=== PATIENT | male | born 1975 | race Caucasian/White ===

== ENCOUNTER → 2020-05-03 14:35 | Outpatient (CLI) | payer SELFPAY ==
--- NOTE | 2020-05-03 14:45 | CT_ITS ---
STUDY: CARDIAC CALCIUM SCORING - CT CHEST REASON FOR EXAM: Male, 44 years old. Screening. RADIATION DOSAGE (If Supplied By Facility): CTDIvol = ( 12.19 ) mGy, DLP = ( 219.42 ) mGycm TECHNIQUE: Axial non-enhanced images were acquired through the heart for the sole purpose of measuring coronary artery calcium. Individualized dose optimization techniques were used for this CT. COMPARISON: None. FINDINGS: This portion of the report is being generated solely for the evaluation of noncoronary artery structures which have been assessed on plain another report. The visualized lungs are well expanded and free of infiltrate or mass. The heart is normal in size. There is evidence of coronary artery calcification. Normal pericardium. Normal mediastinum and christiana. Normal visualized pulmonary arteries and thoracic aorta. Minimal degenerative changes of the thoracic spine. Normal visualized upper abdomen. CT/Limited Chest CT w/CCTA IMPRESSION: No visualized anatomic abnormality. Electronically Signed: Hakeem Poole DO at 22:36 EDT Tel [phone], Service support ,
[2020-05-03 14:48] VITALS: BP 165/102; PULSE 75; RESP 14; O2SAT 96; BMI 35.3
[2020-05-03 15:07] VITALS: BP 154/98; PULSE 80
[2020-05-03] MEDS: Metoprolol Tartrate 5 MG/5 ML Vial IV ×2 (15:07→15:13)
[2020-05-03 15:13] VITALS: BP 141/93; PULSE 77
[2020-05-03 15:31] VITALS: BP 152/95; PULSE 73; RESP 16; O2SAT 97
--- NOTE | 2020-05-03 19:03 | CA.SCORE ---
Calcium Scoring Date of Study:: 05/03/20 Coronary Calcium Scoring: High-resolution Computed Tomographic imaging of the chest was performed on 05/03/2020 with particular attention paid to the coronary arteries. Images from the examination were analyzed for the presence and extent of coronary artery calcification , using coronary calcium quantification software. The patient tolerated the procedure well and there were no complications. The results of the coronary calcification analysis are provided below. - Findings Left Main (LM): 0 Left Anterior Descending (LAD): 0 Left Circumflex (LCX): 0 Right Coronary Artery (RCA): 0 Total Agatston Score: 0 Calcium Scoring Interpretation: 0 No identifiable atherosclerotic plaque. Very low cardiovascular disease risk. <5% chance of presence coronary artery disease A Negative Examination 1-10 Minimal Plaque burden. Significant coronary artery disease very unlikely. 11-100 Mild plaque burden. Likely mild or minimal coronary atherosclerosis. 101-400 Moderate plaque burden Moderate non-obstructive coronary artery disease highly likely. Over 400 Extensive plaque burden. High likelihood of at least one significant coronary stenosis (>50% diameter) Calcium Score: 0 Negative Examination - Continue cardiovascular evaluation and care as deemed appropriate.
== END ==
PROVIDERS: PCP Internal Medicine; Referring Provider Internal Medicine; Visit Provider Internal Medicine
DX: E78.2 Mixed hyperlipidemia (principal); Z82.49 Family history of ischemic heart disease and other diseases of the circulatory system
CPT/HCPCS: 75571; 76380; 96374; A4216

== ENCOUNTER 2020-07-18 13:40 | Inpatient (IN) | payer OTHER, SELFPAY ==
[2020-05-03 14:48] VITALS: BMI 35.3
[2020-07-18 13:41] VITALS: BP 141/86; PULSE 105; RESP 13; TEMP 37.4; O2SAT 99; BMI 36.9
--- NOTE | 2020-07-18 14:05 | ED.DCSUM_ITS ---
History of Present Illness Chief Complaint: Abd Pain Informant: Patient Onset: Yesterday Context: Gradual Onset Current Severity: Moderate Maximum Severity: Moderate Narrative: Patient presents secondary to upper abdominal pain. He states yesterday he was having low back pain. Around 9 PM last evening he developed pain between the umbilicus and the epigastrium. He continues to have pain to this area that slightly radiates around to his right side. He denies fever, nausea, or vomiting. He denies diarrhea. He denies any prior abdominal surgeries. Past history is significant for what he believes is a hypercoagulable state. He states he stopped taking his Coumadin a couple months ago and it is still up in the air as to whether he needs to be taking it or not. - Past Medical History (1) Vertebral artery dissection Status: Resolved (2) Dyslipidemia Status: Chronic (3) HTN (hypertension) Status: Chronic (4) Hypercoagulable state Status: Chronic Past Medical History - Allergies and Home Meds Allergies/Adverse Reactions: Allergies hydrocodone bitartrate [From Vicodin] Adverse Reaction (Verified 07/18/20 13:41) Other Primary Care Physician: Karen Hernandez DO [Primary Care Provider] - Prior records reviewed: Yes Surgical History: total knee arthroplasty Lives: With Family Smoking Status: Never smoker - Family History Maternal Family History: Reports: - - Migraine headaches Review of Systems General: Denies: Chills, Fever Eyes: Denies: Visual changes - bilaterally ENT: Denies: Bilateral ear pain Cardiovascular: Denies: Chest pain Respiratory: Denies: Dyspnea, Cough Gastrointestinal: Reports: Abdominal pain. Denies: Nausea, Vomiting, Diarrhea Genitourinary: Denies: Dysuria Musculoskeletal: Denies: Swelling, Extremity Pain Skin: Denies: Rash Hematologic: Denies: Easy bruising, Easy bleeding Allergy: Denies: Uticaria Physical Exam Vital Signs/Narrative: Vital Signs Temp Pulse Resp BP Pulse Ox 07/18/20 13:41 99.4 F H 105 H 13 141/86 H 99 Inital Vital Signs reviewed: Yes General: Well nourished, Well developed Head: Normocephalic ENT: Moist mucous membranes Neck: Supple Cardiovascular: Regular rate, Regular rhythm Respiratory: No distress, CTA bilaterally Abdomen: Soft, Normal bowel sounds, Tender - Upper abdominal tenderness to palpation.. Negative for: Guarding, Rebound tenderness Back: Nontender Extremities: Nontender Skin: Normal color, No rash Neurological: Alert, Oriented x3 Psychological: Normal affect Diagnostic/Tx/Re-eval Impressions Abdomen Ultrasound 07/18/20 15:23 IMPRESSION: Thick-walled gallbladder with multiple polyps. No shadowing stones. If concern for gallbladder disease HIDA scan with CK stimulation recommended for further evaluation. Nonvisualization of pancreas which may be better assessed with CAT scan if clinically warranted Electronically Signed: Jemal Landers MD at 16:08 EDT , Service support , 07/18/20 15:23 US Abd [Abdomen Limited] [US] Stat Laboratory Results 07/18/20 07/18/20 07/18/20 14:26 14:26 14:26 WBC 9.2 RBC 4.91 Hgb 13.8 Hct 41.9 MCV 85.3 MCH 28.1 MCHC 32.9 RDW Std Deviation 40.1 RDW Coeff of Foster 12.8 Plt Count 194 MPV 10.8 Immature Gran % (Auto) 0.400 Neut % (Auto) 74.5 H Lymph % (Auto) 16.8 L [place] % (Auto) 7.8 Eos % (Auto) 0.3 Baso % (Auto) 0.2 Absolute Neuts (auto) 6.9 Absolute Lymphs (auto) 1.55 Nucleated RBC % 0 Sodium 139 Potassium 3.5 Chloride 108 H Carbon Dioxide 29.0 Anion Gap 2 L BUN 15 Creatinine 0.78 Estim Creat Clear Calc 148.38 Est GFR (MDRD) Af Amer 139 Est GFR (MDRD) Non-Af 115 BUN/Creatinine Ratio 19.3 Glucose 105 Lactic Acid 1.1 Calcium 9.7 Total Bilirubin 0.30 Direct Bilirubin 0.08 AST 10 L ALT 22 Alkaline Phosphatase 68 Total Protein 7.2 Albumin 3.9 Globulin 3.3 Lipase 3813 H - Medical Decision Making Patient did initially declined pain medication but then did agree when pain worsened. He was given 4 mg of morphine along with Zofran. Lab work is consistent with pancreatitis. Ultrasound of the right upper quadrant reveals a thick-walled gallbladder with some polyps but no evidence of gallstones and normal biliary duct. Patient be discussed with hospitalist regarding admission. ED Disposition - Plan for ED Patient: Disposition: Acute Care [facility] Diagnosis: Pancreatitis Referrals: Karen Hernandez DO [Primary Care Provider] -
[2020-07-18 14:40] LABS: Absolute Lymphocyte Count 1.55 X10^3/uL (0.83-4.51); Absolute Neutrophil Count 6.9 X10^3/uL (2.0-7.7); Basophil# 0.02 X10^3/uL; Basophil% 0.2 % (0-1); Eosinophil# 0.03 X10^3/uL; Eosinophils% 0.3 % (0-5); Hematocrit 41.9 % (40-54); Hemoglobin 13.8 g/dL (13.0-16.5); Lymphocyte # 1.55 X10^3/ul (4.0); Lymphocyte % 16.8 % (19-41); Mean Corp Hgb Conc 32.9 g/dL (32-36); Mean Corpuscular Hgb 28.1 pg (27.0-32.0); Mean Corpuscular Volume 85.3 fL (80-94); Mean Platelet Vol. 10.8 fl (6.2-12.0); Monocyte# 0.72 X10^3/uL; Monocyte% 7.8 % (0-10); NRBC Flagged by Analyzer 0 % (0-5); Neutrophil # 6.85 X10^3/uL (2.7-7.7); Neutrophil % 74.5 % (47-70); Platelet Count 194 K/mm3 (150-450); RBC Distribution Width CV 12.8 % (11.6-14.6); RBC Distribution Width SD 40.1 fl (35.1-43.9); Red Blood Count 4.91 M/mm3 (4.6-6.2); White Blood Count 9.2 K/mm3 (4.4-11.0)
[2020-07-18 15:01] LABS: AST(SGOT) 10 U/L (15-37); Alanine Aminotransfer ALT/SGPT 22 U/L (16-61); Albumin, Serum 3.9 g/dL (3.2-5.0); Alkaline Phosphatase 68 U/L (45-117); Anion Gap 2 (5-15); BUN 15 mg/dL (7-18); BUN/Creat Ratio 19.3 RATIO (10-20); Bilirubin, Direct 0.08 mg/dL (0.00-0.30); Calcium,Total 9.7 mg/dL (8.5-10.1); Chloride 108 mmol/L (98-107); Creatinine, Serum 0.78 mg/dL (0.70-1.30); EST Glomerular Filtration Rate 115 mL/min (>60); Est Glom Filt Rate - Afr Amer 139 mL/min (>60); Estimated Creatinine Clearance 148.38 ml/min; Globulin 3.3 g/dL (2.2-4.2); Glucose 105 mg/dL (74-106); Lipase 3813 U/L (73-393); Potassium 3.5 mmol/L (3.5-5.1); Protein, Total 7.2 g/dL (6.4-8.2); Sodium Level 139 mmol/L (136-145)
[2020-07-18 15:10] LABS: Lactic Acid 1.1 mmol/L (0.4-1.9)
[2020-07-18] MEDS: 0.9% Normal Saline 1,000 ML 150 ML IV (15:10)
--- NOTE | 2020-07-18 15:23 | US_ITS ---
STUDY: ABDOMINAL ULTRASOUND - RIGHT UPPER QUADRANT REASON FOR VISIT: Male, 44 years old ABD PAIN EPIGASTRIC TECHNIQUE: Ultrasound evaluation of the right upper quadrant was performed with real-time and static cohn-scale imaging. TECHNICAL QUALITY: Adequate. COMPARISON: None. FINDINGS: Liver: The liver measures 24.85 cm. There is diffusely increased echogenicity of the liver. The bile ducts are within normal limits. There is hepatic color flow. The direction of portal flow is hepatopetal. There is no demonstrated mass lesion. Gallbladder: Normal distended gallbladder. The gallbladder wall measures 3 mm. There is a negative sonographic Whaley''s sign. There is no pericholecystic fluid. No shadowing stones are observed. There are small polyps. Common Bile Duct (C.B.D.): The common bile duct measures 5 mm. Pancreas: Pancreas is not well visualized due to bowel gas producing artifact.. Right Kidney: Normal size of the right kidney. The right kidney measures 12.5 x 6.3 x 6.7 cm. Normal renal cortex. The right cortex measures 2.1 cm. There is no demonstrated renal mass or cyst. There is no right hydronephrosis. US/Abdomen Limited IMPRESSION: Thick-walled gallbladder with multiple polyps. No shadowing stones. If concern for gallbladder disease HIDA scan with CK stimulation recommended for further evaluation. Nonvisualization of pancreas which may be better assessed with CAT scan if clinically warranted Electronically Signed: Jemal Landers MD at 16:08 EDT , Service support ,
[2020-07-18] MEDS: Ondansetron 4 MG/2 ML Vial IV (15:51)
[2020-07-18] MEDS: 0.9% Normal Saline 1,000 ML 999 ML IV (15:52)
[2020-07-18] MEDS: Morphine 4 MG/ML Syringe IV (15:52)
[2020-07-18 15:57] VITALS: BP 103/64; PULSE 89; RESP 16; O2SAT 97
[2020-07-18 16:31] VITALS: BMI 37.0
[2020-07-18 16:48] VITALS: BP 114/75; PULSE 81; RESP 16; TEMP 36.8; O2SAT 98
--- NOTE | 2020-07-18 16:51 | CT_ITS ---
STUDY: CT ABDOMEN AND PELVIS WITHOUT CONTRAST REASON FOR EXAM: Male, 44 years old. PANCREATITIS? RADIATION DOSAGE (If Supplied By Facility): CTDIvol = ( 20.40 ) mGy, DLP = ( 1446.07 ) mGycm TECHNIQUE: Transaxial images were obtained from the dome of the diaphragm to the symphysis pubis without oral contrast, and without intravenous contrast. Sagittal and coronal images were reconstructed. Individualized dose optimization techniques were used for this CT. COMPARISON: None. FINDINGS: Mild interstitial thickening in both lower lobes.. The visualized portions of the heart are within normal limits. Normal liver. Normal gallbladder and extrahepatic biliary system. Normal spleen. Pancreas is normal size however there is peripancreatic edema of the mid to distal pancreas with a small amount of free fluid in the left anterior pararenal space consistent with acute pancreatitis. Normal bilateral adrenal glands. No evidence for renal obstruction. There is a tiny cyst in the right kidney. There is a solid cortical nodule in left kidney measuring approximately 2 x 2.7 cm. Possibility of neoplasm not excluded. Fluid-filled stomach with diffuse distention of both large and small bowel consistent with ileus. No evidence for small bowel obstruction The appendix is visualized and appears normal. Normal abdominal aorta. Normal inferior vena cava. Normal retroperitoneum. Incompletely distended thick-walled bladder. Normal abdominal wall. Lumbar spine demonstrates mild spondylosis. CT/Abdomen/Pelvis W IV Cont ONLY IMPRESSION: Findings consistent with acute pancreatitis localized to the body and tail of the pancreas with small amount of free fluid in the left anterior pararenal space. Incidental finding of small solid cortical nodule left kidney uncertain etiology. Cannot exclude neoplasm. Repeat study with contrast or MRI would be useful for further assessment Tiny right renal cyst Electronically Signed: Jemal Landers MD at 17:41 EDT , Service support ,
--- NOTE | 2020-07-18 17:01 | NURSING ---
MED SURG MANOLO PANCREATITIS
[2020-07-18 17:07] VITALS: BMI 39.4
--- NOTE | 2020-07-18 17:17 | PCM.HP.STD ---
History of Present Illness Date of Admission: 07/18/20 The patient is a 44 year old M with PMH of vertebral dissection, hypercoagulable state, HTN, Depression, Hypertriglyceridemia and seasonal allergies presented to the ED on 07/18/2020 c/o abdominal pain that radiates to his back, nausea and vomiting. He states that yesterday he and his family were at the [facility] and he had back pain all day. They then went to dinner and he had wings and by evening he was having back pain and abdominal pain. His sx worsening through the night and he began to have N/V. He denies constipation, diarrhea, melena, hematochezia or hematemesis. His VSS. His CBC is unremarkable. LFTs are WNL but lipase was 3813. An US of the RUQ was done and shows a thickened GB wall with multiple polyps but no stones and no bile duct dilation. Pt does admit that he has chronically elevated triglycerides but is unaware of his last level. the last one that is documented in the electronic medical record here is 367 but that was from 2014. The case was discussed with Dr. Wan and he recommended an IV contrasted CT to assess for pancreatic mass. That study is pending at this time. He denies any regular EtOH intake and states that he maybe drinks 20 beers per year and his confirms this. Past Medical History Past Medical History (Chronic Problems): Chronic Problems HTN (hypertension) (Chronic) Dyslipidemia (Chronic) Hypercoagulable state (Chronic) Allergies hydrocodone bitartrate [From Vicodin] Adverse Reaction (Verified 07/18/20 13:41) Other Home Medications: Ambulatory Orders Medication Instructions Recorded Buspirone HCl 15 mg PO BID 07/18/20 Citalopram [Celexa] 20 mg PO DAILY 07/18/20 Hydrochlorothiazide [Hctz] 25 mg PO DAILY 07/18/20 Lisinopril [Zestril] 20 mg PO BID 07/18/20 Loratadine [Claritin] 10 mg PO DAILY 07/18/20 Surgical History: total knee arthroplasty Lives: With Family Smoking Status: Former smoker Tobacco Use: Cigarettes Alcohol: Rare Drugs: None - *Family History Maternal History Items: - - Migraine headaches Review of Systems Constitutional: Reports: Anorexia, Malaise. Denies: Chills, Fever, Night Sweats, Weakness, Weight Change, Fatigue Eyes: Denies: Blurred vision, Cataracts, Conjunctivae Inflammation, Double vision, Drainage, Eyelid Inflammation, Pain, Redness, Vision Change HEENT: Denies: Difficulty Hearing, Difficulty Swallowing, Dysphasia, Ear Pain, Eye Pain, Hard of Hearing, Head Aches, Hearing Changes, Nasal bleeding, Nasal Congestion, Post Nasal Drip, Sinus Congestion, Sinus Drainage, Sore Throat, Visual Changes Cardiovascular: Denies: Chest Pain, Claudication, Chest Pressure, Chest Tightness, Edema, Heaviness, Light Headedness, Orthopnea, Palpitations, Paroxysmal Noc. Dyspnea, Syncope Respiratory: Denies: Cough, Hemoptysis, Pleuritic Pain, Shortness of Breath, Shortness of breath at rest, Shortness of breath upon exertion, Sputum production, Wheezing Gastrointestinal: Reports: Abdominal Pain, Nausea, Vomiting. Denies: Constipation, Diarrhea, Dyspepsia, Hematemesis, Hematochezia, Melena Genitourinary: Denies: Dysuria, Frequency, Hematuria, Hesitancy, Incontinence, Nocturia, Retention, Urgency Musculoskeletal: Reports: Back Pain. Denies: Joint Pain, Joint stiffness, Joint swelling, Joint Tenderness, Neck Pain Skin: Denies: Dryness, Jaundice, Lesions, Pruritis, Rash, Skin Changes, Wounds Neurological: Denies: Balance problems, Blurred vision, Double vision, Change in Speech, Slurred speech, Confusion, Difficulty swallowing, Focal weakness, Headaches, Incoordination, Numbness, Tingling, Tremor, Seizures Psychiatric: Denies: Anxiety, Depression Endocrine: Denies: Change in Body Habitus, Heat/ Cold Intolerance, Polydipsia Hematologic/ Lymphatic: Denies: Adenopathy, Anemia, Easy Bruising, Easy Bleeding, Petechiae, Purpura VTE Information - Inpt Only VTE Present on Admission: No VTE Pharm Prophylaxis ordered?: Yes Patient Problems: Active and Suspected Problems Pancreatitis (Acute) - Physical Exam Vitals/I&O's: Vital Signs Temp Pulse Resp BP Pulse Ox 98.2 F 81 16 114/75 98 07/18/20 16:48 07/18/20 16:48 07/18/20 16:48 07/18/20 16:48 07/18/20 16:48 Oxygen Delivery Method Room Air Weight: 137.8 kg Body Mass Index (BMI) 36.9 General: Alert, Oriented x3, Cooperative, No apparent distress, Well developed, Well nourished, - - middle aged WM lying in bed, non-toxic but appears that the does not feel well HEENT: Atraumatic, PERRLA, EOMI, Normocephalic, EAC Clear Oral: No Gingival or Mucosal Lesions/ Ulcerations, Dry Mucosa, - - Mallampati 2 Neck: Supple, No JVD, Negative Carotid Bruits, Negative Hepatojugular Reflux, No Nodes, Trachea Midline, Thyroid Normal Size and Texture Lungs: Clear to auscultation, Normal air movement, No rhonchi, No wheeze, No rales Cardiovascular: Regular rate, Regular Rhythm, Normal S1, Normal S2, No murmurs, No Ectopic Activity, No rub noted, No Gallop Abdomen: Bowel Sounds Present, Soft, Non-Distended, No Hepato-splenomegaly, Obese, Tender - epigastrum and LUQ Extremities: No clubbing, No cyanosis, No edema, Capillary Refill Less than 3 Seconds, No Calf Tenderness, Peripheral Pulses Normal Skin: No rashes, No breakdown Musculoskeletal: No Tenderness to Palpation of Joints or Extremities, No Muscle Wasting Lymphatic: No Cervical, Supraclavicular, or Inguinal Adenopathy Neurological: Cranial nerves II-XII grossly intact, Deep Tendon Reflexes 2+/4 and Symmetrical, Neuro grossly intact, Motor Exam 5/5 strength throughout, Muscle tone normal, Sensory exam intact to light touch and pain, Coordination normal Psych/Mental Status: Normal Affect, Appropriate, Alert and oriented to time, place, person, mood and affect Laboratory Results 07/18/20 14:26: WBC 9.2, RBC 4.91, Hgb 13.8, Hct 41.9, MCV 85.3, MCH 28.1, MCHC 32.9, RDW Std Deviation 40.1, RDW Coeff of Foster 12.8, Plt Count 194, MPV 10.8, Immature Gran % (Auto) 0.400, Neut % (Auto) 74.5 H, Lymph % (Auto) 16.8 L, [place] % (Auto) 7.8, Eos % (Auto) 0.3, Baso % (Auto) 0.2, Absolute Neuts (auto) 6.9, Absolute Lymphs (auto) 1.55, Nucleated RBC % 0 07/18/20 14:26: Sodium 139, Potassium 3.5, Chloride 108 H, Carbon Dioxide 29.0, Anion Gap 2 L, BUN 15, Creatinine 0.78, Estim Creat Clear Calc 148.38, Est GFR (MDRD) Af Amer 139, Est GFR (MDRD) Non-Af 115, BUN/Creatinine Ratio 19.3, Glucose 105, Calcium 9.7, Total Bilirubin 0.30, Direct Bilirubin 0.08, AST 10 L, ALT 22, Alkaline Phosphatase 68, Total Protein 7.2, Albumin 3.9, Globulin 3.3, Lipase 3813 H 07/18/20 14:26: Lactic Acid 1.1 Current Medications Sodium Chloride () 1,000 mls @ 150 mls/hr IV .[id number] [facility] Last Admin: 07/18/20 15:10 Dose: 150 mls/hr Documented by: Sodium Chloride () 10 - 40 ml IV UD PRN PRN Reason: SALINE FLUSH Assessment/Plan All Active Problems Pancreatitis (Acute) Vertebral artery dissection (Resolved) Headache (Acute) Acute Pancreatitis -NPO except for few ice chips -CT A/P pending -LR at 200 cc/hr -dilaudid for pain -prn bowel regimen -check trigs -consult GS Hypercoagulable state -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 but unable to tell me which ones -is supposed to be on OAC (coumadin) but has not been taking this and doesn't remember his last dose -no recent clots -check INR today -hold OAC -sub q heparin for now and if no OR in am would start therapeutic Lovenox and coumadin HTN -hold PO BP meds -10 mg scheduled Hydralazine q 6 hrs -monitor Hypertriglyceridemia -check trigs -if > 1000 may need plasmapheresis and would need to be transferred to OSH -last documented in EMR in 2014 and was 367 -takes no meds for this H/O vert aa dissection -no current issues -per was 2/2 chiropractor Depression/Anxiety -hold celexa and buspar DVT prophylaxis -see above Code Status Full Inpatient E&M: 78911 Init Hosp L3
[2020-07-18] MEDS: fentaNYL 100 MCG/2 ML Ampul 50 MCG IV (17:29)
[2020-07-18 17:33] VITALS: BP 120/71; PULSE 78; RESP 95
[2020-07-18] MEDS: Lactated Ringers 1,000 ML 200 ML IV (19:02)
[2020-07-18] MEDS: HYDROmorphone 1 MG/ML Syringe IV ×2 (19:07→23:28)
[2020-07-18 19:18] VITALS: RESP 12; O2SAT 88
[2020-07-18 19:45] LABS: Triglycerides 279 mg/dL
[2020-07-18 19:48] LABS: International Normalized Ratio 1.1; Prothrombin Time (Protime)PT. 13.4 SECONDS (11.7-14.9)
[2020-07-18 20:03] VITALS: BP 155/95; PULSE 81; RESP 16; TEMP 37; O2SAT 97
[2020-07-18] MEDS: Ketorolac 15 MG/ML Vial IV (21:16)
[2020-07-18] MEDS: 0.9% Saline Lock 10 ML Syringe IV ×2 (21:17→23:27)
[2020-07-18] MEDS: Heparin Injection (Vial) 5,000 UNIT/ML VIAL 5000 UNIT SC (21:25)
[2020-07-19] VITALS (15 sets, daily range): BP systolic 98–159; BP diastolic 58–104; PULSE 90–118; RESP 16–20; TEMP 36.1–38.8; O2SAT 93–99
[2020-07-19] MEDS: Lactated Ringers 1,000 ML 200 ML IV ×3 (00:27→09:54)
[2020-07-19] MEDS: 0.9% Saline Lock 10 ML Syringe IV ×7 (02:24→22:36)
[2020-07-19] MEDS: Ondansetron 4 MG/2 ML Vial IV (02:26)
[2020-07-19] MEDS: HYDROmorphone 1 MG/ML Syringe IV ×8 (03:25→22:36)
[2020-07-19] MEDS: Ketorolac 15 MG/ML Vial IV (05:05)
[2020-07-19] MEDS: Heparin Injection (Vial) 5,000 UNIT/ML VIAL 5000 UNIT SC (05:12)
[2020-07-19 06:18] LABS: Absolute Lymphocyte Count 0.46 X10^3/uL (0.83-4.51); Absolute Neutrophil Count 13.5 X10^3/uL (2.0-7.7); Basophil# 0.01 X10^3/uL; Basophil% 0.1 % (0-1); Hematocrit 42.2 % (40-54); Hemoglobin 13.7 g/dL (13.0-16.5); Lymphocyte # 0.46 X10^3/ul (4.0); Lymphocyte % 3.1 % (19-41); Mean Corp Hgb Conc 32.5 g/dL (32-36); Mean Corpuscular Hgb 28.2 pg (27.0-32.0); Mean Platelet Vol. 10.7 fl (6.2-12.0); Monocyte# 0.81 X10^3/uL; Monocyte% 5.5 % (0-10); NRBC Flagged by Analyzer 0 % (0-5); Neutrophil # 13.45 X10^3/uL (2.7-7.7); Neutrophil % 90.8 % (47-70); POSITIVE DIFFERENTIAL YES; POSITIVE MORPHOLOGY YES; Platelet Count 189 K/mm3 (150-450); RBC Distribution Width CV 13.1 % (11.6-14.6); RBC Distribution Width SD 41.8 fl (35.1-43.9); Red Blood Count 4.85 M/mm3 (4.6-6.2); White Blood Count 14.8 K/mm3 (4.4-11.0)
[2020-07-19 06:20] LABS: Differential Indicated SCAN CRITERIA MET
[2020-07-19 06:25] LABS: International Normalized Ratio 1.1; Prothrombin Time (Protime)PT. 13.4 SECONDS (11.7-14.9)
[2020-07-19 06:38] LABS: Differential Comment SCANNED
[2020-07-19 06:41] LABS: ALB/GLOB Ratio 1.1 RATIO (0.9-2.4); AST(SGOT) 14 U/L (15-37); Alanine Aminotransfer ALT/SGPT 23 U/L (16-61); Albumin, Serum 3.6 g/dL (3.2-5.0); Alkaline Phosphatase 60 U/L (45-117); Anion Gap 6 (5-15); BUN 15 mg/dL (7-18); BUN/Creat Ratio 17.5 RATIO (10-20); Calcium,Total 9.4 mg/dL (8.5-10.1); Chloride 104 mmol/L (98-107); Creatinine, Serum 0.86 mg/dL (0.70-1.30); EST Glomerular Filtration Rate 103 mL/min (>60); Est Glom Filt Rate - Afr Amer 124 mL/min (>60); Estimated Creatinine Clearance 131.01 ml/min; Globulin 3.2 g/dL (2.2-4.2); Glucose 174 mg/dL (74-106); Magnesium 1.9 mg/dL (1.6-2.6); Phosphorus 2.6 mg/dL (2.5-4.9); Potassium 3.8 mmol/L (3.5-5.1); Protein, Total 6.8 g/dL (6.4-8.2); Sodium Level 139 mmol/L (136-145)
[2020-07-19 07:28] LABS: Lipase 1966 U/L (73-393)
--- NOTE | 2020-07-19 07:35 | PN_ITS ---
Patient Problems: Active and Suspected Problems Pancreatitis (Acute) Reason for Visit: Follow-up on acute pancreatitis Subjective: Patient was seen and examined. He complains of severe pain in the epigastric region. Had couple of episodes of vomiting last night. Feels nauseous. No other acute events overnight. Denies any fever or chills. Objective: Physical exam: General: Alert, Oriented x3, Cooperative, No apparent distress, Well developed, Well nourished, obese, in mild discomfort HEENT: Atraumatic, PERRLA, EOMI, Normocephalic, EAC Clear Oral: No Gingival or Mucosal Lesions/ Ulcerations, Dry Mucosa, - - Mallampati 2 Neck: Supple, No JVD, Negative Carotid Bruits, Negative Hepatojugular Reflux, No Nodes, Trachea Midline, Thyroid Normal Size and Texture Lungs: Clear to auscultation, Normal air movement, No rhonchi, No wheeze, No rales Cardiovascular: Regular rate, Regular Rhythm, Normal S1, Normal S2, No murmurs, No Ectopic Activity, No rub noted, No Gallop Abdomen: Bowel Sounds Present, Soft, Non-Distended, No Hepato-splenomegaly, Obese, Tender - epigastrium and LUQ Extremities: No clubbing, No cyanosis, No edema, Capillary Refill Less than 3 Seconds, No Calf Tenderness, Peripheral Pulses Normal Skin: No rashes, No breakdown Musculoskeletal: No Tenderness to Palpation of Joints or Extremities, No Muscle Wasting Lymphatic: No Cervical, Supraclavicular, or Inguinal Adenopathy Neurological: Cranial nerves II-XII grossly intact, Deep Tendon Reflexes 2+/4 and Symmetrical, Neuro grossly intact, Motor Exam 5/5 strength throughout, Muscle tone normal, Sensory exam intact to light touch and pain, Coordination normal Psych/Mental Status: Normal Affect, Appropriate, Alert and oriented to time, place, person, mood and affect Vitals/I&O's: Vital Signs Temp Pulse Resp BP Pulse Ox 97.0 F L 90 18 159/104 H 96 07/19/20 02:15 07/19/20 02:15 07/19/20 02:07/19/20 02:07/19/20 07:06 Oxygen Flow Rate (L/min) 2 Oxygen Delivery Method Nasal Cannula Weight: 142.882 kg Body Mass Index (BMI) 39.4 Intake and Output for Last 24 Hours 07/17/20 07/18/20 07/19/20 23:59 23:59 23:59 Intake Total 1999 Balance 1999 Laboratory Results 07/18/20 14:26: WBC 9.2, RBC 4.91, Hgb 13.8, Hct 41.9, MCV 85.3, MCH 28.1, MCHC 32.9, RDW Std Deviation 40.1, RDW Coeff of Foster 12.8, Plt Count 194, MPV 10.8, Immature Gran % (Auto) 0.400, Neut % (Auto) 74.5 H, Lymph % (Auto) 16.8 L, [place] % (Auto) 7.8, Eos % (Auto) 0.3, Baso % (Auto) 0.2, Absolute Neuts (auto) 6.9, Absolute Lymphs (auto) 1.55, Nucleated RBC % 0 07/18/20 14:26: Sodium 139, Potassium 3.5, Chloride 108 H, Carbon Dioxide 29.0, Anion Gap 2 L, BUN 15, Creatinine 0.78, Estim Creat Clear Calc 148.38, Est GFR (MDRD) Af Amer 139, Est GFR (MDRD) Non-Af 115, BUN/Creatinine Ratio 19.3, Glucose 105, Calcium 9.7, Total Bilirubin 0.30, Direct Bilirubin 0.08, AST 10 L, ALT 22, Alkaline Phosphatase 68, Total Protein 7.2, Albumin 3.9, Globulin 3.3, Lipase 3813 H 07/18/20 14:26: Lactic Acid 1.1 07/18/20 19:22: PT 13.4, INR 1.1 07/18/20 19:22: Triglycerides 279 H 07/19/20 06:00: WBC 14.8 H, RBC 4.85, Hgb 13.7, Hct 42.2, MCV 87.0, MCH 28.2, MCHC 32.5, RDW Std Deviation 41.8, RDW Coeff of Foster 13.1, Plt Count 189, MPV 10.7, Immature Gran % (Auto) 0.500, Neut % (Auto) 90.8 H, Lymph % (Auto) 3.1 L, [place] % (Auto) 5.5, Eos % (Auto) 0.0, Baso % (Auto) 0.1, Absolute Neuts (auto) 1 3.5 H, Absolute Lymphs (auto) 0.46 L, Nucleated RBC % 0, Differential Comment SCANNED 07/19/20 06:00: PT 13.4, INR 1.1 07/19/20 06:00: Sodium 139, Potassium 3.8, Chloride 104, Carbon Dioxide 29.0, Anion Gap 6, BUN 15, Creatinine 0.86, Estim Creat Clear Calc 131.01, Est GFR (MDRD) Af Amer 124, Est GFR (MDRD) Non-Af 103, BUN/Creatinine Ratio 17.5, Glucose 174 H, Calcium 9.4, Phosphorus 2.6, Magnesium 1.9, Total Bilirubin 0.50, AST 14 L, ALT 23, Alkaline Phosphatase 60, Total Protein 6.8, Albumin 3.6, Globulin 3.2, Albumin/Globulin Ratio 1.1 07/19/20 06:00: Lipase 1966 H Current Medications Acetaminophen (Tylenol) 650 mg PO Q6H PRN PRN PRN Reason: Pain Score 1-10/10 Docusate Sodium (Colace) 100 mg PO BID PRN PRN PRN Reason: Constipation Heparin Sodium (Porcine) (Heparin Na) 5,000 unit SC Q8 [facility] Last Admin: 07/19/20 05:12 Dose: 5,000 unit Documented by: Hydromorphone HCl (Dilaudid Inj) 1 mg IV Q4H PRN PRN PRN Reason: Pain Score 6-10/10 Last Admin: 07/19/20 07:23 Dose: 1 mg Documented by: Lactated Ringer's () 1,000 mls @ 200 mls/hr IV .Q5H [facility] Last Admin: 07/19/20 05:08 Dose: 200 mls/hr Documented by: Ketorolac Tromethamine (Toradol (Bkc)) 15 mg IV Q6 PRN PRN Reason: Pain Score 4-5/10 Stop: 07/23/20 20:47 Last Admin: 07/19/20 05:05 Dose: 15 mg Documented by: Lisinopril (Zestril) 20 mg PO BID [facility] Ondansetron HCl (Zofran) 4 mg IV Q8H PRN PRN PRN Reason: NAUSEA/VOMITING Last Admin: 07/19/20 02:26 Dose: 4 mg Documented by: Promethazine HCl (Phenergan) 25 mg IM Q6H PRN PRN PRN Reason: Breakthrough nausea/vomiting Sodium Chloride () 10 - 40 ml IV UD PRN PRN Reason: SALINE FLUSH Last Admin: 07/19/20 07:23 Dose: 10 ml Documented by: STROKE Vital Signs/Narrative: Vital Signs Pulse Ox 07/19/20 07:06 96 Medical Necessity - Tobacco Use Smoking Status: Former smoker Tobacco Use: Cigarettes Assessment/Plan All Active Problems Pancreatitis (Acute) Vertebral artery dissection (Resolved) Headache (Acute) 1. Acute pancreatitis, unclear etiology, no h/o alcohol, very slightly improved, remains in pain CT of the abdomen and pelvis confirms acute pancreatitis localized to the body and tail of the pancreas Admitting lipase is 3813, lipase today is 1966 triglycerides level is 141. Patient is on lisinopril but doubt that that is contributing to his acute pancreatitis We will continue with n.p.o. status, IV fluids, pain control Follow-up on general surgery recommendations 2. Hypercoagulable state, unclear diagnosis, We will start on therapeutic Lovenox Would hold off on Coumadin until tomorrow when patient is much stable We will also start patient on some prophylaxis PPI to prevent gastritis and GI bleed 3. Hyperlipidemia, triglycerides are 141 this morning, total cholesterol 229, LDL 160 We will hold off on statin for now 4. H/o Vertebral artery dissection, no signs of dissection 5. Anxiety/depression, will hold off anxiolytics Will probably start tomorrow when improved 6. DVT PPx- On therapeutic Lovenox Inpatient E&M: [id number] [facility] Hosp L2
[2020-07-19 07:58] LABS: Cholesterol 229 mg/dL (200); High Density Lipoprotein 41 mg/dL; Triglycerides 141 mg/dL; Very Low Density Lipoprotein 28 mg/dL (5-40)
[2020-07-19] MEDS: Lisinopril 20 MG Tablet PO ×2 (09:12→22:15)
--- NOTE | 2020-07-19 10:35 | CASEMGMT ---
RN CHAVEZ Face to Face with patient for initial transition planning/care coordination assessment. RN CM introduced self and role at [facility]. Patient lying in bed, alert and oriented, at bedside. Patient willing to participate in assessment and is able to answer all questions appropriately. Care providers, pharmacy, and demographics verified. Patient wishes to discharge home, denies need for home health at this time. Patient states he has no further needs or concerns at this time. CM to follow for discharge planning needs that may arise. PCP: David Specialists: None Preferred Pharmacy: [facility] Insurance: MMO Prescription Benefit: yes Living Will/HPOA: yes to living will, no to HPOA LNOK: Living Arrangements: Patient lives with in a 2 story home. Patient independent and able to ambulate stair. Transportation: self, DME/HHC: Patient denies DME or previous HHC. Disposition Plan: Patient to discharge home with family support and follow-up plans in place. Jesica WADE, RN, CM
--- NOTE | 2020-07-19 11:10 | CON.PCM_ITS ---
Problem List (1) Pancreatitis Status: Acute Qualifiers: Chronicity: acute Pancreatitis type: unspecified pancreatitis type Acute pancreatitis complication: no infection or necrosis Qualified Code(s): K85.90 - Acute pancreatitis without necrosis or infection, unspecified Reason for Consult Date of Consultation: 07/19/20 Reason for Consultation: Pancreatitis History of Present Illness: The patient is a 44 year old M who presented with 2-day history of epigastric pain with nausea and vomiting that occurred in the emergency room. No fevers or chills. The patient reports that his pain is in all upper abdomen. It does radiate to his back. He is never had pancreatitis in the past. Past Medical History Past Medical History (Chronic Problems): Chronic Problems HTN (hypertension) (Chronic) Dyslipidemia (Chronic) Hypercoagulable state (Chronic) Allergies hydrocodone bitartrate [From Vicodin] Adverse Reaction (Verified 07/18/20 13:41) Other Home Medications: Ambulatory Orders Medication Instructions Recorded Buspirone HCl 15 mg PO BID 07/18/20 Citalopram [Celexa] 20 mg PO DAILY 07/18/20 Hydrochlorothiazide [Hctz] 25 mg PO DAILY 07/18/20 Lisinopril [Zestril] 20 mg PO BID 07/18/20 Loratadine [Claritin] 10 mg PO DAILY 07/18/20 Surgical History: total knee arthroplasty Lives: With Family Smoking Status: Former smoker Tobacco Use: Cigarettes Alcohol: Rare Drugs: None - *Family History Maternal History Items: - - Migraine headaches Review of Systems Constitutional: Denies: Anorexia, Chills, Fever HEENT: Denies: Difficulty Swallowing Cardiovascular: Denies: Chest Pain Respiratory: Denies: Cough, Shortness of Breath Gastrointestinal: Reports: Abdominal Pain, Nausea, Vomiting. Denies: Constipation, Diarrhea Genitourinary: Denies: Dysuria Skin: Denies: Jaundice Neurological: Denies: Balance problems Psychiatric: Denies: Depression Hematologic/ Lymphatic: Denies: Anemia Patient Problems: Active and Suspected Problems Pancreatitis (Acute) - Physical Exam Vitals/I&O's: Vital Signs Temp Pulse Resp BP Pulse Ox 99.1 F 104 H 16 146/81 H 96 07/19/20 09:59 07/19/20 09:07 07/19/20 09:07 07/19/20 09:07 07/19/20 09:07 Oxygen Flow Rate (L/min) 2 Oxygen Delivery Method Nasal Cannula Weight: 315 lb Body Mass Index (BMI) 39.4 Intake and Output for Last 24 Hours 07/17/20 07/18/20 07/19/20 23:59 23:59 23:59 Intake Total 1999 2940.00 / 2940.00 Balance 1999 2940.00 / 2940.00 General: Alert, Oriented x3 Lungs: Normal air movement Cardiovascular: Regular rate, Regular Rhythm Abdomen: Soft, Non-Distended, Tender - Tender in the upper abdomen with no guarding or rebound Skin: No rashes Musculoskeletal: No Muscle Wasting Neurological: Cranial nerves II-XII grossly intact Psych/Mental Status: Normal Affect Laboratory Results 07/18/20 14:26: WBC 9.2, RBC 4.91, Hgb 13.8, Hct 41.9, MCV 85.3, MCH 28.1, MCHC 32.9, RDW Std Deviation 40.1, RDW Coeff of Foster 12.8, Plt Count 194, MPV 10.8, Immature Gran % (Auto) 0.400, Neut % (Auto) 74.5 H, Lymph % (Auto) 16.8 L, [place] % (Auto) 7.8, Eos % (Auto) 0.3, Baso % (Auto) 0.2, Absolute Neuts (auto) 6.9, Absolute Lymphs (auto) 1.55, Nucleated RBC % 0 07/18/20 14:26: Sodium 139, Potassium 3.5, Chloride 108 H, Carbon Dioxide 29.0, Anion Gap 2 L, BUN 15, Creatinine 0.78, Estim Creat Clear Calc 148.38, Est GFR (MDRD) Af Amer 139, Est GFR (MDRD) Non-Af 115, BUN/Creatinine Ratio 19.3, Glucose 105, Calcium 9.7, Total Bilirubin 0.30, Direct Bilirubin 0.08, AST 10 L, ALT 22, Alkaline Phosphatase 68, Total Protein 7.2, Albumin 3.9, Globulin 3.3, Lipase 3813 H 07/18/20 14:26: Lactic Acid 1.1 07/18/20 19:22: PT 13.4, INR 1.1 07/18/20 19:22: Triglycerides 279 H 07/19/20 06:00: WBC 14.8 H, RBC 4.85, Hgb 13.7, Hct 42.2, MCV 87.0, MCH 28.2, MCHC 32.5, RDW Std Deviation 41.8, RDW Coeff of Foster 13.1, Plt Count 189, MPV 10.7, Immature Gran % (Auto) 0.500, Neut % (Auto) 90.8 H, Lymph % (Auto) 3.1 L, [place] % (Auto) 5.5, Eos % (Auto) 0.0, Baso % (Auto) 0.1, Absolute Neuts (auto) 13.5 H, Absolute Lymphs (auto) 0.46 L, Nucleated RBC % 0, Differential Comment SCANNED 07/19/20 06:00: PT 13.4, INR 1.1 07/19/20 06:00: Sodium 139, Potassium 3.8, Chloride 104, Carbon Dioxide 29.0, Anion Gap 6, BUN 15, Creatinine 0.86, Estim Creat Clear Calc 131.01, Est GFR (MDRD) Af Amer 124, Est GFR (MDRD) Non-Af 103, BUN/Creatinine Ratio 17.5, Glucose 174 H, Calcium 9.4, Phosphorus 2.6, Magnesium 1.9, Total Bilirubin 0.50, AST 14 L, ALT 23, Alkaline Phosphatase 60, Total Protein 6.8, Albumin 3.6, Globulin 3.2, Albumin/Globulin Ratio 1.1 07/19/20 06:00: Lipase 1966 H 07/19/20 06:00: Triglycerides 141, Cholesterol 229 H, LDL Cholesterol 160 H, VLDL Cholesterol 28, HDL Cholesterol 41 Clinical Impression(s) from Imaging Studies Abdomen Ultrasound 07/18/20 15:23 IMPRESSION: Thick-walled gallbladder with multiple polyps. No shadowing stones. If concern for gallbladder disease HIDA scan with CK stimulation recommended for further evaluation. Nonvisualization of pancreas which may be better assessed with CAT scan if clinically warranted Electronically Signed: Jemal Landers MD at 16:08 EDT , Service support , Abdomen/Pelvis CT 07/18/20 16:51 IMPRESSION: Findings consistent with acute pancreatitis localized to the body and tail of the pancreas with small amount of free fluid in the left anterior pararenal space. Incidental finding of small solid cortical nodule left kidney uncertain etiology. Cannot exclude neoplasm. Repeat study with contrast or MRI would be useful for further assessment Tiny right renal cyst Electronically Signed: Jemal Landers MD at 17:41 EDT , Service support , Current Medications Acetaminophen (Tylenol) 650 mg PO Q6H PRN PRN PRN Reason: Pain Score 1-10/10 Docusate Sodium (Colace) 100 mg PO BID PRN PRN PRN Reason: Constipation Enoxaparin Sodium (Lovenox) 140 mg SC Q12 [facility] Hydromorphone HCl (Dilaudid Inj) 1 mg IV Q2H PRN PRN PRN Reason: Pain Score 6-10/10 Last Admin: 07/19/20 09:54 Dose: 1 mg Documented by: Lactated Ringer's () 1,000 mls @ 200 mls/hr IV .Q5H [facility] Last Admin: 07/19/20 09:54 Dose: 200 mls/hr Documented by: Lisinopril (Zestril) 20 mg PO BID [facility] Last Admin: 07/19/20 09:12 Dose: 20 mg Documented by: Ondansetron HCl (Zofran) 4 mg IV Q8H PRN PRN PRN Reason: NAUSEA/VOMITING Last Admin: 07/19/20 02:26 Dose: 4 mg Documented by: Promethazine HCl (Phenergan) 25 mg IM Q6H PRN PRN PRN Reason: Breakthrough nausea/vomiting Sodium Chloride () 10 - 40 ml IV UD PRN PRN Reason: SALINE FLUSH Last Admin: 07/19/20 09:54 Dose: 10 ml Documented by: Assessment/Plan All Active Problems Pancreatitis (Acute) Vertebral artery dissection (Resolved) Headache (Acute) 44-year-old male with pancreatitis 1. The patient has acute pancreatitis of unknown etiology. The patient had a CT scan and ultrasound which showed no gallstones or dilation of the bile ducts. The patient's LFTs are normal. Patient's triglycerides were mildly elevated and are normal today. The patient's lipase is decreasing. 2. I discussed the patient's condition with the patient and his significant other. I do not know the etiology of his pancreatitis. Patient has no gallstones so it is unlikely gallstone pancreatitis. The patient does report that he had a very high triglyceride level recently was prescribed medicines which he did not take. It is possible that his pancreatitis is due to hypertriglyceridemia. I discussed removing his gallbladder but I advised him that I am not sure that gallstones were the cause of his pancreatitis as he has no other gallstones on ultrasound. I cannot promise that removing his gallbladder would prevent further episodes of pancreatitis. At this time there is no plan for cholecystectomy. 3. Continue IV fluids and aggressive rehydration as well as n.p.o. Once the patient's pain resolves he can start a clear liquid diet. Gary Wan MD Pager: [facility] [address] [place] [address] [address] [place] [address] Office:
[2020-07-19] MEDS: 0.9% Normal Saline 1,000 ML 200 ML IV ×2 (12:15→17:36)
[2020-07-19] MEDS: Enoxaparin 150 MG/ML Syringe 140 MG SC ×2 (12:15→22:15)
--- NOTE | 2020-07-19 12:48 | CPS ---
incentive in room, patient states he has prior knowledge and will do it later
[2020-07-19] MEDS: Acetaminophen 325 MG Tablet 650 MG PO ×2 (15:16→22:36)
--- NOTE | 2020-07-19 16:26 | CHAPLAIN ---
Type of Pastoral Visit _x__ Initial Visit ___ Follow-up Visit ___ On-call Visit ___ General Patient Visit ___ Spiritual Assessment ___ Family Conference ___ Bereavement ___ Rapid Response ___ Code Blue ___ Other (describe below) Pastoral Care Referral From _x__ Patient ___ Family ___ Nurse ___ Physician ___ Dinkey Brakeman ___ Call Center Support Representative ___ Other (describe below) Sacrament/Intervention ___ Active listening ___ Anointing ___ Episcopal ___ Bereavement ___ Communion ___ [place] exploration ___ ___ Life review _x__ Prayer ___ Reconciliation ___ Sacrament of Sick _x__ Supportive presence ___ Wedding ___ Other (describe below) Pastoral Comments
--- NOTE | 2020-07-19 17:00 | EKG12_ITS ---
Test Reason : TACHYCARDIA Blood Pressure : / mmHG Vent. Rate : 109 BPM Atrial Rate : 109 BPM P-R Int : 142 ms QRS Dur : 102 ms QT Int : 308 ms P-R-T Axes : 028 043 -01 degrees QTc Int : 414 ms Sinus tachycardia with frequent Premature ventricular complexes Nonspecific T wave abnormality Abnormal ECG When compared with ECG of 09-MAY-2009 02:44, Premature ventricular complexes are now Present Vent. rate has increased BY [address] no longer elevated in Lateral leads Nonspecific T wave abnormality now evident in Lateral leads Confirmed by MYKE CAMP, AMANDA ([id number]), medical transcription editor YOSELYN DANIELS ([id number]) on 08/02/2020 1:08:41 PM Referred By: YESSENIA Confirmed By:REINIER STRINGER MD
--- NOTE | 2020-07-19 17:10 | RAD_ITS ---
STUDY: X-RAY CHEST REASON FOR EXAM: Male, 44 years old. Sepsis. Pancreatitis. TECHNIQUE: Single AP portable view of the chest. COMPARISON: 09/24/2012. FINDINGS: There is a limited inspiratory effort left basilar atelectasis. The lungs are otherwise clear. There is no demonstrated pleural abnormality. Normal size heart. Normal mediastinum and christiana. Normal visualized pulmonary arteries. Normal visualized aortic arch and descending thoracic aorta. The thoracic spine is obscured by the mediastinum. Normal visualized ribs, clavicles, and shoulders. There is no demonstrated abnormality of the visualized soft tissue structures of the upper abdomen. RAD/Chest 1 View (Portable) IMPRESSION: Limited inspiration with left basilar atelectasis. Electronically Signed: Hakeem Poole DO at 20:54 EDT Tel [phone], Service support ,
[2020-07-19 17:57] LABS: Bacteria 0 SEEN /hpf (None Seen); Mucous, Urine 0 SEEN /hpf (<or=2+); Red Blood Cells-Urine 0 SEEN /hpf (0-5)
[2020-07-19 18:00] LABS: Color, Urine Yellow (Yellow); Glucose, Dipstick 50 mg/dl (Normal); Ketone-Dipstick 5 mg/dl (Negative); Leukocyte Esterase-Dipstick 25 /ul (Negative); Nitrite-Dipstick Negative (Negative); Occult Blood-Urine Negative /ul (Negative); Protein-Dipstick 30 mg/dl (Negative); Specific Gravity, Urine 1.025 (1.002-1.030); Urine Clarity Sl. Cloudy (Clear); Urine Urobilinogen 1 mg/dl (Normal)
--- NOTE | 2020-07-19 18:57 | NURSING ---
updated pt/spouse on testing- pt spouse starts crying and becomes upset. pt looks towards spouse and states see what you did. pt spouse walks up to pt, has tears, appologizes and states to nurse i don't want him to have it, i wanted it for my mom because she is a psycho. Spouse demands said nurse go out and inform md that she does not want him tested. informed pt spouse bolus needs to be hung first then will address with charge nurse and md. asked pt what he wanted and pt states i don't want the test i will refuse it. 1856: group test to Dr. Mcclelland and Dr. Sullivan informing that pt refusing COVID test and spouse no longer wants him tested either and is in tears. 1856: per Dr. Sullivan it was ordered due to spouse request, okay not to do it. 1856: per Dr. Mcclelland: thanks
[2020-07-19 19:18] LABS: Urine Bilirubin Dipstick 1 mg/dL (Negative)
[2020-07-19 19:22] LABS: Magnesium 1.5 mg/dL (1.6-2.6)
--- NOTE | 2020-07-19 19:22 | NURSING ---
spouse/pt updated on cancellation of COVID.
[2020-07-19 19:29] LABS: Squamous Epithelial Cells - UA 0-5 SEEN /hpf (0-5); White Blood Cells 0-5 SEEN /hpf (0-5)
[2020-07-20] VITALS (12 sets, daily range): BP systolic 101–140; BP diastolic 60–92; PULSE 54–116; RESP 18–20; TEMP 36.7–37.7; O2SAT 89–97
[2020-07-20] MEDS: HYDROmorphone 1 MG/ML Syringe IV ×6 (02:09→21:13)
[2020-07-20] MEDS: 0.9% Normal Saline 1,000 ML 200 ML IV (03:13)
--- NOTE | 2020-07-20 05:12 | NURSING ---
HR 140's with occasional runs of bigeminal PVC's, pt up ambulating in room. Assisted to bathroom and to chair. Pt c/o dyspnea on exertion. SpO2 92%. Pt encouraged to sit in chair and rest. C/o severe abdominal pain, but states he would like pain meds in 20 minutes. Pt left in chair with call light within reach.
[2020-07-20] MEDS: Acetaminophen 325 MG Tablet 650 MG PO ×2 (05:26→17:54)
[2020-07-20 06:06] LABS: Absolute Lymphocyte Count 0.55 X10^3/uL (0.83-4.51); Basophil# 0.03 X10^3/uL; Basophil% 0.2 % (0-1); Eosinophil# 0.16 X10^3/uL; Hematocrit 39.1 % (40-54); Hemoglobin 12.8 g/dL (13.0-16.5); Lymphocyte # 0.55 X10^3/ul (4.0); Lymphocyte % 3.6 % (19-41); Mean Corp Hgb Conc 32.7 g/dL (32-36); Mean Corpuscular Hgb 28.6 pg (27.0-32.0); Mean Corpuscular Volume 87.5 fL (80-94); Mean Platelet Vol. 10.8 fl (6.2-12.0); Monocyte# 1.46 X10^3/uL; Monocyte% 9.6 % (0-10); NRBC Flagged by Analyzer 0 % (0-5); Neutrophil # 12.99 X10^3/uL (2.7-7.7); Neutrophil % 85.1 % (47-70); POSITIVE DIFFERENTIAL YES; POSITIVE MORPHOLOGY YES; Platelet Count 165 K/mm3 (150-450); RBC Distribution Width CV 13.6 % (11.6-14.6); RBC Distribution Width SD 44.1 fl (35.1-43.9); Red Blood Count 4.47 M/mm3 (4.6-6.2); White Blood Count 15.3 K/mm3 (4.4-11.0)
[2020-07-20 06:09] LABS: Differential Indicated SCAN CRITERIA MET
[2020-07-20 06:35] LABS: Differential Comment SCANNED
[2020-07-20 06:39] LABS: ALB/GLOB Ratio 1.3 RATIO (0.9-2.4); AST(SGOT) 17 U/L (15-37); Alanine Aminotransfer ALT/SGPT 17 U/L (16-61); Albumin, Serum 3.1 g/dL (3.2-5.0); Alkaline Phosphatase 48 U/L (45-117); Anion Gap 7 (5-15); BUN 26 mg/dL (7-18); BUN/Creat Ratio 25.7 RATIO (10-20); Calcium,Total 8.7 mg/dL (8.5-10.1); Chloride 109 mmol/L (98-107); Creatinine, Serum 1.01 mg/dL (0.70-1.30); EST Glomerular Filtration Rate 85 mL/min (>60); Est Glom Filt Rate - Afr Amer 103 mL/min (>60); Estimated Creatinine Clearance 111.55 ml/min; Globulin 2.4 g/dL (2.2-4.2); Glucose 117 mg/dL (74-106); Potassium 3.5 mmol/L (3.5-5.1); Protein, Total 5.5 g/dL (6.4-8.2); Sodium Level 141 mmol/L (136-145)
--- NOTE | 2020-07-20 07:58 | PN_ITS ---
Patient Problems: Active and Suspected Problems Pancreatitis (Acute) Reason for Visit: Follow-up on acute pancreatitis Subjective: And was seen and examined. Complains of still feeling unwell. He has no appetite. Abdominal pain persists. He complains of nausea. He feels thirsty. Yesterday, he developed fever with T-max of 101.8F. He also had progressive shortness of breath. He was tachycardic. He was symptomatic and felt dizzy anytime he tried to get up. Last x-ray yesterday showed atelectasis. UA was unremarkable. Blood cultures start were taken. He was started on empiric Zosyn. Objective: Physical exam: General: Alert, Oriented x3, Cooperative, No apparent distress, Well developed, Well nourished, obese, in mild discomfort HEENT: Atraumatic, PERRLA, EOMI, Normocephalic, EAC Clear Oral: No Gingival or Mucosal Lesions/ Ulcerations, Dry Mucosa, - - Mallampati 2 Neck: Supple, No JVD, Negative Carotid Bruits, Negative Hepatojugular Reflux, No Nodes, Trachea Midline, Thyroid Normal Size and Texture Lungs: Clear to auscultation, Normal air movement, No rhonchi, No wheeze, No rales Cardiovascular: Regular rate, Regular Rhythm, Normal S1, Normal S2, No murmurs, No Ectopic Activity, No rub noted, No Gallop Abdomen: Bowel Sounds Present, Soft, Non-Distended, No Hepato-splenomegaly, Obese, Tender - epigastrium and LUQ Extremities: No clubbing, No cyanosis, No edema, Capillary Refill Less than 3 Seconds, No Calf Tenderness, Peripheral Pulses Normal Skin: No rashes, No breakdown Musculoskeletal: No Tenderness to Palpation of Joints or Extremities, No Muscle Wasting Lymphatic: No Cervical, Supraclavicular, or Inguinal Adenopathy Neurological: Cranial nerves II-XII grossly intact, Deep Tendon Reflexes 2+/4 and Symmetrical, Neuro grossly intact, Motor Exam 5/5 strength throughout, Muscle tone normal, Sensory exam intact to light touch and pain, Coordination normal Psych/Mental Status: Normal Affect, Appropriate, Alert and oriented to time, place, person, mood and affect Vitals/I&O's: Vital Signs Temp Pulse Resp BP Pulse Ox 99.8 F H 116 H 20 H 134/80 H 89 07/20/20 05:24 07/20/20 05:24 07/20/20 05:24 07/20/20 05:24 07/20/20 07:12 Oxygen Flow Rate (L/min) 2 Oxygen Delivery Method Nasal Cannula Weight: 142.882 kg Body Mass Index (BMI) 39.4 Intake and Output for Last 24 Hours 07/18/20 07/19/20 07/20/20 23:59 23:59 23:59 Intake Total 1999 6236.67 / 6236.67 301.75 / 301.75 Output Total 175 / 175 Balance 1999 6061.67 / 6061.67 301.75 / 301.75 Laboratory Results 07/19/20 06:00: Triglycerides 141, Cholesterol 229 H, LDL Cholesterol 160 H, VLDL Cholesterol 28, HDL Cholesterol 41 07/19/20 17:30: Urine Color Yellow, Urine Clarity Sl. Cloudy, Urine pH 6.0, Ur Specific [place] 1.025, Urine Protein 30 H, Urine Glucose (UA) 50 H, Urine Ketones 5 H, Urine Occult Blood Negative, Urine Nitrite Negative, Urine Bilirubin 1 H, Urine Urobilinogen 1 H, Ur Leukocyte Esterase 25 H, Urine RBC 0 SEEN, Urine WBC 0-5 SEEN, Ur Squamous Epith Cells 0-5 SEEN, Urine Bacteria 0 SEEN, Urine Mucus 0 SEEN 07/19/20 18:45: Magnesium 1.5 L 07/20/20 05:54: WBC 15.3 H, RBC 4.47 L, Hgb 12.8 L, Hct 39.1 L, MCV 87.5, MCH 28.6, MCHC 32.7, RDW Std Deviation 44.1 H, RDW Coeff of Foster 13.6, Plt Count 165, MPV 10.8, Immature Gran % (Auto) 0.500, Neut % (Auto) 85.1 H, Lymph % (Auto) 3.6 L, [place] % (Auto) 9.6, Eos % (Auto) 1.0, Baso % (Auto) 0.2, Absolute Neuts (auto) 13.0 H, Absolute Lymphs (auto) 0.55 L, Nucleated RBC % 0, Differential Comment SCANNED 07/20/20 05:54: Sodium 141, Potassium 3.5, Chloride 109 H, Carbon Dioxide 25.0, Anion Gap 7, BUN 26 H, Creatinine 1.01, Estim Creat Clear Calc 111.55, Est GFR (MDRD) Af Amer 103, Est GFR (MDRD) Non-Af 85, BUN/Creatinine Ratio 25.7 H, Glucose 117 H, Calcium 8.7, Total Bilirubin 1.20 H, AST 17, ALT 17, Alkaline Phosphatase 48, Total Protein 5.5 L, Albumin 3.1 L, Globulin 2.4, Albumin/Globulin Ratio 1.3 07/20/20 05:54: Magnesium Pending Current Medications Acetaminophen (Tylenol) 650 mg PO Q6H PRN PRN PRN Reason: Pain Score 1-1010 Last Admin: 07/20/20 05:26 Dose: 650 mg Documented by: Docusate Sodium (Colace) 100 mg PO BID PRN PRN PRN Reason: Constipation Enoxaparin Sodium (Lovenox) 140 mg SC Q12 [facility] Last Admin: 07/19/20 22:15 Dose: 140 mg Documented by: Hydromorphone HCl (Dilaudid Inj) 1 mg IV Q2H PRN PRN PRN Reason: Pain Score 6-10/10 Last Admin: 07/20/20 05:26 Dose: 1 mg Documented by: Pantoprazole Sodium 40 mg/ (Sodium Chloride) 110 mls @ 330 mls/hr IV Q12 [facility] Last Infusion: 07/19/20 21:33 Dose: Infused Documented by: Piperacillin Sod/Tazobactam (Sod 3.375 gm/ Sodium Chloride) 50 mls @ 12.5 mls/hr IV Q8 [facility] Last Admin: 07/20/20 05:26 Dose: 12.5 mls/hr Documented by: Sodium Chloride () 250 mls @ 15 mls/hr IV .[id number] PRN PRN Reason: Saline Flush Last Infusion: 07/20/20 05:27 Dose: 0 mls/hr Documented by: Sodium Chloride () 250 mls @ 15 mls/hr IV .[id number] PRN PRN Reason: Additional IVPB Infusion Lisinopril (Zestril) 20 mg PO BID [facility] Last Admin: 07/19/20 22:15 Dose: 20 mg Documented by: Ondansetron HCl (Zofran) 4 mg IV Q8H PRN PRN PRN Reason: NAUSEA/VOMITING Last Admin: 07/19/20 02:26 Dose: 4 mg Documented by: Promethazine HCl (Phenergan) 25 mg IM Q6H PRN PRN PRN Reason: Breakthrough nausea/vomiting Sodium Chloride () 10 - 40 ml IV UD PRN PRN Reason: SALINE FLUSH Last Admin: 07/19/20 22:36 Dose: 10 ml Documented by: STROKE Vital Signs/Narrative: Vital Signs Temp Pulse Resp BP Pulse Ox 07/20/20 07:12 89 07/20/20 05:24 99.8 F H 116 H 20 H 134/80 H 96 07/20/20 03:59 99 Medical Necessity - Tobacco Use Smoking Status: Former smoker Tobacco Use: Cigarettes Assessment/Plan All Active Problems Pancreatitis (Acute) Vertebral artery dissection (Resolved) Headache (Acute) 1. Fever, tachycardia, no source of infection, T-max of 101.8. No fevers this morning WBC count appears to have increased from 14.8 to 15.3, likely reactive. Blood cultures are pending. Chest x-ray showed left basilar atelectasis. UA was unremarkable Started on empiric Zosyn. Will continue same antibiotics pending blood culture results. 2. Acute pancreatitis, unclear etiology, no h/o alcohol, very slightly improved, remains in pain CT of the abdomen and pelvis confirms acute pancreatitis localized to the body and tail of the pancreas Admitting lipase is 3813, lipase yesterday was 1966 Patient is on lisinopril and HCTZ but doubt that that is contributing to his acute pancreatitis We will continue with n.p.o. status, IV fluids, pain control Follow-up on general surgery recommendations 3. Hypomagnesemia, resolved, magnesium is 2.1 4. Hypercoagulable state, unclear diagnosis, On therapeutic Lovenox Would continue to hold off on Coumadin until tomorrow when patient is much stable 5. Hyperlipidemia,uncontrolled We will hold off on statin for now 6. H/o Vertebral artery dissection, no signs of dissection 7. Anxiety/depression, will hold off anxiolytics Will probably start tomorrow when improved 8. DVT PPx- On therapeutic Lovenox Inpatient E&M: [id number] [facility] Hosp L2
[2020-07-20 08:19] LABS: Magnesium 2.1 mg/dL (1.6-2.6)
--- NOTE | 2020-07-20 09:24 | PN.SURG_ITS ---
Patient Problems: Active and Suspected Problems Pancreatitis (Acute) Subjective: The patient reports improvement in his epigastric pain but he still does have pain. No nausea or vomiting overnight - Physical Exam Vitals/I&O's: Vital Signs Temp Pulse Resp BP Pulse Ox 98.9 F 112 H 18 134/77 H 97 07/20/20 08:11 07/20/20 08:11 07/20/20 08:11 07/20/20 08:11 07/20/20 08:11 Oxygen Flow Rate (L/min) 2 Oxygen Delivery Method Nasal Cannula Weight: 315 lb 0.014 oz Body Mass Index (BMI) 39.4 Intake and Output for Last 24 Hours 07/18/20 07/19/20 07/20/20 23:59 23:59 23:59 Intake Total 1999 6236.67 / 6236.67 301.75 / 301.75 Output Total 175 / 175 Balance 1999 6061.67 / 6061.67 301.75 / 301.75 General: Alert, Oriented x3 Cardiovascular: Regular rate, Regular Rhythm Abdomen: Soft, Non-Distended, Tender - Tender in the epigastric region Laboratory Results 07/19/20 17:30: Urine Color Yellow, Urine Clarity Sl. Cloudy, Urine pH 6.0, Ur Specific [place] 1.025, Urine Protein 30 H, Urine Glucose (UA) 50 H, Urine Ketones 5 H, Urine Occult Blood Negative, Urine Nitrite Negative, Urine Bilirubin 1 H, Urine Urobilinogen 1 H, Ur Leukocyte Esterase 25 H, Urine RBC 0 SEEN, Urine WBC 0-5 SEEN, Ur Squamous Epith Cells 0-5 SEEN, Urine Bacteria 0 SEEN, Urine Mucus 0 SEEN 07/19/20 18:45: Magnesium 1.5 L 07/20/20 05:54: WBC 15.3 H, RBC 4.47 L, Hgb 12.8 L, Hct 39.1 L, MCV 87.5, MCH 28.6, MCHC 32.7, RDW Std Deviation 44.1 H, RDW Coeff of Foster 13.6, Plt Count 165, MPV 10.8, Immature Gran % (Auto) 0.500, Neut % (Auto) 85.1 H, Lymph % (Auto) 3.6 L, [place] % (Auto) 9.6, Eos % (Auto) 1.0, Baso % (Auto) 0.2, Absolute Neuts (auto) 13.0 H, Absolute Lymphs (auto) 0.55 L, Nucleated RBC % 0, Differential Comment SCANNED 07/20/20 05:54: Sodium 141, Potassium 3.5, Chloride 109 H, Carbon Dioxide 25.0, Anion Gap 7, BUN 26 H, Creatinine 1.01, Estim Creat Clear Calc 111.55, Est GFR (MDRD) Af Amer 103, Est GFR (MDRD) Non-Af 85, BUN/Creatinine Ratio 25.7 H, Glucose 117 H, Calcium 8.7, Total Bilirubin 1.20 H, AST 17, ALT 17, Alkaline Phosphatase 48, Total Protein 5.5 L, Albumin 3.1 L, Globulin 2.4, Albumin/Globulin Ratio 1.3 07/20/20 05:54: Magnesium 2.1 Current Medications Acetaminophen (Tylenol) 650 mg PO Q6H PRN PRN PRN Reason: Pain Score 1-10/10 Last Admin: 07/20/20 05:26 Dose: 650 mg Documented by: Buspirone HCl (Buspar) 15 mg PO BID [facility] Citalopram Hydrobromide (Celexa) 20 mg PO DAILY [facility] Docusate Sodium (Colace) 100 mg PO BID PRN PRN PRN Reason: Constipation Enoxaparin Sodium (Lovenox) 140 mg SC Q12 [facility] Last Admin: 07/19/20 22:15 Dose: 140 mg Documented by: Hydromorphone HCl (Dilaudid Inj) 1 mg IV Q2H PRN PRN PRN Reason: Pain Score 6-10/10 Last Admin: 07/20/20 08:15 Dose: 1 mg Documented by: Pantoprazole Sodium 40 mg/ (Sodium Chloride) 110 mls @ 330 mls/hr IV Q12 [facility] Last Infusion: 07/19/20 21:33 Dose: Infused Documented by: Piperacillin Sod/Tazobactam (Sod 3.375 gm/ Sodium Chloride) 50 mls @ 12.5 mls/hr IV Q8 [facility] Last Admin: 07/20/20 05:26 Dose: 12.5 mls/hr Documented by: Sodium Chloride () 250 mls @ 15 mls/hr IV .[id number] PRN PRN Reason: Saline Flush Last Infusion: 07/20/20 05:27 Dose: 0 mls/hr Documented by: Sodium Chloride () 250 mls @ 15 mls/hr IV .[id number] PRN PRN Reason: Additional IVPB Infusion Potassium Chloride/Sodium Chloride () 1,000 mls @ 100 mls/hr IV .Q10H [facility] Lisinopril (Zestril) 20 mg PO BID [facility] Last Admin: 07/19/20 22:15 Dose: 20 mg Documented by: Ondansetron HCl (Zofran) 4 mg IV Q8H PRN PRN PRN Reason: NAUSEA/VOMITING Last Admin: 07/19/20 02:26 Dose: 4 mg Documented by: Promethazine HCl (Phenergan) 25 mg IM Q6H PRN PRN PRN Reason: Breakthrough nausea/vomiting Sodium Chloride () 10 - 40 ml IV UD PRN PRN Reason: SALINE FLUSH Last Admin: 07/19/20 22:36 Dose: 10 ml Documented by: Medical Necessity - Tobacco Use Smoking Status: Former smoker Tobacco Use: Cigarettes Assessment/Plan All Active Problems Pancreatitis (Acute) Vertebral artery dissection (Resolved) Headache (Acute) 44-year-old male with pancreatitis 1. Patient has pancreatitis of unknown etiology. Patient has severe stranding in the left upper quadrant associate with the tail the pancreas on CT scan and chest x-ray yesterday showed possible consolidation or effusion in the left lower lobe. Continue IV fluids and n.p.o. until patient's pain resolves. No plans for surgery currently as there are no gallstones. Gary Wan MD Pager: [facility] [address] [place] [address], [address] [place] [address] Office:
[2020-07-20] MEDS: Citalopram 20 MG Tablet PO (10:11)
[2020-07-20] MEDS: busPIRone 15 MG TABLET PO ×2 (10:11→21:13)
[2020-07-20] MEDS: Enoxaparin 150 MG/ML Syringe 140 MG SC ×2 (10:12→22:28)
[2020-07-20] MEDS: Lisinopril 20 MG Tablet PO ×2 (12:07→21:13)
[2020-07-20] MEDS: 0.9% Saline Lock 10 ML Syringe IV ×2 (13:27→21:13)
[2020-07-20] MEDS: Docusate Sodium 100 MG Capsule PO (17:54)
[2020-07-21] VITALS (7 sets, daily range): BP systolic 112–177; BP diastolic 65–97; PULSE 58–100; RESP 16–20; TEMP 36.8–37.1; O2SAT 93–96
[2020-07-21] MEDS: HYDROmorphone 1 MG/ML Syringe IV ×7 (01:17→23:40)
[2020-07-21] MEDS: 0.9% Saline Lock 10 ML Syringe IV ×6 (01:18→19:43)
--- NOTE | 2020-07-21 08:08 | PN.SURG_ITS ---
Patient Problems: Active and Suspected Problems Pancreatitis (Acute) Subjective: Patient reports he is still having abdominal pain although he does note a slight improvement since yesterday. No nausea or vomiting. - Physical Exam Vitals/I&O's: Vital Signs Temp Pulse Resp BP Pulse Ox 98.3 F 58 L 20 H 112/65 96 07/21/20 03:12 07/21/20 03:12 07/21/20 03:12 07/21/20 03:12 07/21/20 03:12 Oxygen Flow Rate (L/min) 2 Oxygen Delivery Method Room Air Weight: 315 lb 0.014 oz Body Mass Index (BMI) 39.4 Intake and Output for Last 24 Hours 07/19/20 07/20/20 07/21/20 23:59 23:59 23:59 Intake Total 6236.67 / 6236.67 3320.92 / 3320.92 1198.33 / 1198.33 Output Total 175 / 175 Balance 6061.67 / 6061.67 3320.92 / 3320.92 1198.33 / 1198.33 General: Alert, Oriented x3 Lungs: Normal air movement Cardiovascular: Regular rate, Regular Rhythm Abdomen: Soft, Non-Distended, Tender - Tender in the epigastric region Skin: No rashes Musculoskeletal: No Muscle Wasting Neurological: Cranial nerves II-XII grossly intact Microbiology Past 72 Hours 07/19/20 17:30 Urine, Clean Catch Urine Culture - Preliminary Culture exhibits no growth. Laboratory Results 07/20/20 05:54: Magnesium 2.1 Current Medications Acetaminophen (Tylenol) 650 mg PO Q6H PRN PRN PRN Reason: Pain Score 1-10/10 Last Admin: 07/20/20 17:54 Dose: 650 mg Documented by: Buspirone HCl (Buspar) 15 mg PO BID [facility] Last Admin: 07/20/20 21:13 Dose: 15 mg Documented by: Citalopram Hydrobromide (Celexa) 20 mg PO DAILY [facility] Last Admin: 07/20/20 10:11 Dose: 20 mg Documented by: Docusate Sodium (Colace) 100 mg PO BID PRN PRN PRN Reason: Constipation Last Admin: 07/20/20 17:54 Dose: 100 mg Documented by: Enoxaparin Sodium (Lovenox) 140 mg SC Q12 [facility] Last Admin: 07/20/20 22:28 Dose: 140 mg Documented by: Hydromorphone HCl (Dilaudid Inj) 1 mg IV Q2H PRN PRN PRN Reason: Pain Score 6-10/10 Last Admin: 07/21/20 04:33 Dose: 1 mg Documented by: Pantoprazole Sodium 40 mg/ (Sodium Chloride) 110 mls @ 330 mls/hr IV Q12 [facility] Last Infusion: 07/20/20 21:33 Dose: Infused Documented by: Piperacillin Sod/Tazobactam (Sod 3.375 gm/ Sodium Chloride) 50 mls @ 12.5 mls/hr IV Q8 [facility] Last Admin: 07/21/20 05:32 Dose: 12.5 mls/hr Documented by: Sodium Chloride () 250 mls @ 15 mls/hr IV .[id number] PRN PRN Reason: Saline Flush Last Infusion: 07/20/20 13:27 Dose: 0 mls/hr Documented by: Sodium Chloride () 250 mls @ 15 mls/hr IV .[id number] PRN PRN Reason: Additional IVPB Infusion Potassium Chloride/Sodium Chloride () 1,000 mls @ 100 mls/hr IV .Q10H [facility] Last Admin: 07/21/20 07:59 Dose: 100 mls/hr Documented by: Lisinopril (Zestril) 20 mg PO BID [facility] Last Admin: 07/20/20 21:13 Dose: 20 mg Documented by: Ondansetron HCl (Zofran) 4 mg IV Q8H PRN PRN PRN Reason: NAUSEA/VOMITING Last Admin: 07/19/20 02:26 Dose: 4 mg Documented by: Promethazine HCl (Phenergan) 25 mg IM Q6H PRN PRN PRN Reason: Breakthrough nausea/vomiting Sodium Chloride () 10 - 40 ml IV UD PRN PRN Reason: SALINE FLUSH Last Admin: 07/21/20 04:33 Dose: 10 ml Documented by: Medical Necessity - Tobacco Use Smoking Status: Former smoker Tobacco Use: Cigarettes Assessment/Plan All Active Problems Pancreatitis (Acute) Vertebral artery dissection (Resolved) Headache (Acute) 44-year-old male with acute pancreatitis 1. The patient is still having epigastric pain. He is not having any nausea or vomiting. I did order labs this morning. If the patient's white count continues to trend upward I would recommend a repeat CT scan with IV contrast to ensure that there is no necrosis or infected necrosis. 2. Continue n.p.o. and IV fluids. Gary Wan MD Pager: [facility] [address] [place] [address], [address] [place] [address] Office:
[2020-07-21 08:49] LABS: Absolute Lymphocyte Count 0.61 X10^3/uL (0.83-4.51); Absolute Neutrophil Count 9.2 X10^3/uL (2.0-7.7); Basophil# 0.01 X10^3/uL; Basophil% 0.1 % (0-1); Eosinophil# 0.19 X10^3/uL; Eosinophils% 1.7 % (0-5); Hematocrit 36.9 % (40-54); Hemoglobin 11.8 g/dL (13.0-16.5); Lymphocyte # 0.61 X10^3/ul (4.0); Lymphocyte % 5.6 % (19-41); Mean Corpuscular Hgb 28.3 pg (27.0-32.0); Mean Corpuscular Volume 88.5 fL (80-94); Mean Platelet Vol. 11.4 fl (6.2-12.0); Monocyte# 0.94 X10^3/uL; Monocyte% 8.6 % (0-10); NRBC Flagged by Analyzer 0 % (0-5); Neutrophil # 9.17 X10^3/uL (2.7-7.7); Neutrophil % 83.7 % (47-70); POSITIVE MORPHOLOGY YES; Platelet Count 162 K/mm3 (150-450); RBC Distribution Width CV 13.8 % (11.6-14.6); RBC Distribution Width SD 44.8 fl (35.1-43.9); Red Blood Count 4.17 M/mm3 (4.6-6.2)
[2020-07-21 08:53] LABS: Differential Indicated SCAN CRITERIA MET
[2020-07-21 09:01] LABS: ALB/GLOB Ratio 0.7 RATIO (0.9-2.4); AST(SGOT) 14 U/L (15-37); Alanine Aminotransfer ALT/SGPT 12 U/L (16-61); Albumin, Serum 2.6 g/dL (3.2-5.0); Alkaline Phosphatase 48 U/L (45-117); Anion Gap 5 (5-15); BUN 23 mg/dL (7-18); BUN/Creat Ratio 27.6 RATIO (10-20); Calcium,Total 9.4 mg/dL (8.5-10.1); Chloride 112 mmol/L (98-107); Creatinine, Serum 0.83 mg/dL (0.70-1.30); EST Glomerular Filtration Rate 106 mL/min (>60); Est Glom Filt Rate - Afr Amer 128 mL/min (>60); Estimated Creatinine Clearance 135.74 ml/min; Globulin 3.8 g/dL (2.2-4.2); Glucose 103 mg/dL (74-106); Lipase 320 U/L (73-393); Potassium 3.8 mmol/L (3.5-5.1); Protein, Total 6.4 g/dL (6.4-8.2); Sodium Level 142 mmol/L (136-145)
[2020-07-21 09:13] LABS: Differential Comment SCANNED
[2020-07-21] MEDS: Lisinopril 20 MG Tablet PO ×2 (09:58→21:21)
[2020-07-21] MEDS: Enoxaparin 150 MG/ML Syringe 140 MG SC ×2 (09:58→21:19)
[2020-07-21] MEDS: busPIRone 15 MG TABLET PO ×2 (09:58→21:19)
[2020-07-21] MEDS: Citalopram 20 MG Tablet PO (09:59)
[2020-07-21] MEDS: hydrALAZINE 10 MG Tablet PO (10:50)
--- NOTE | 2020-07-21 14:37 | PN_ITS ---
Patient Problems: Active and Suspected Problems Pancreatitis (Acute) Reason for Visit: Follow-up on acute pancreatitis Subjective: Patient was seen and examined. He complains of upper abdominal distention and pain that radiates across her upper abdomen. He denies any diarrhea. He has had no bowel movement but has been passing gas. Denied any fever or chills. Objective: Physical exam: General: Alert, Oriented x3, Cooperative, No apparent distress, Well developed, Well nourished, obese, in mild discomfort HEENT: Atraumatic, PERRLA, EOMI, Normocephalic, EAC Clear Oral: No Gingival or Mucosal Lesions/ Ulcerations, Dry Mucosa, - - Mallampati 2 Neck: Supple, No JVD, Negative Carotid Bruits, Negative Hepatojugular Reflux, No Nodes, Trachea Midline, Thyroid Normal Size and Texture Lungs: Clear to auscultation, Normal air movement, No rhonchi, No wheeze, No rales Cardiovascular: Regular rate, Regular Rhythm, Normal S1, Normal S2, No murmurs, No Ectopic Activity, No rub noted, No Gallop Abdomen: Bowel Sounds Present, Soft, Non-Distended, No Hepato-splenomegaly, Obese, Tender - epigastrium and LUQ Extremities: No clubbing, No cyanosis, No edema, Capillary Refill Less than 3 Seconds, No Calf Tenderness, Peripheral Pulses Normal Skin: No rashes, No breakdown Musculoskeletal: No Tenderness to Palpation of Joints or Extremities, No Muscle Wasting Lymphatic: No Cervical, Supraclavicular, or Inguinal Adenopathy Neurological: Cranial nerves II-XII grossly intact, Deep Tendon Reflexes 2+/4 and Symmetrical, Neuro grossly intact, Motor Exam 5/5 strength throughout, Muscle tone normal, Sensory exam intact to light touch and pain, Coordination normal Psych/Mental Status: Normal Affect, Appropriate, Alert and oriented to time, place, person, mood and affect Vitals/I&O's: Vital Signs Temp Pulse Resp BP Pulse Ox 98.5 F 95 16 145/96 H 95 07/21/20 14:31 07/21/20 14:31 07/21/20 14:31 07/21/20 14:31 07/21/20 14:31 Oxygen Flow Rate (L/min) 2 Oxygen Delivery Method Room Air Weight: 142.882 kg Body Mass Index (BMI) 39.4 Intake and Output for Last 24 Hours 07/19/20 07/20/20 07/21/20 23:59 23:59 23:59 Intake Total 6236.67 / 6236.67 3320.92 / 3320.92 1538.33 / 1538.33 Output Total 175 / 175 Balance 6061.67 / 6061.67 3320.92 / 3320.92 1538.33 / 1538.33 Microbiology Past 72 Hours 07/19/20 17:30 Urine, Clean Catch Urine Culture - Preliminary Culture exhibits no growth. Laboratory Results 07/21/20 08:31: WBC 11.0, RBC 4.17 L, Hgb 11.8 L, Hct 36.9 L, MCV 88.5, MCH 28.3, MCHC 32.0, RDW Std Deviation 44.8 H, RDW Coeff of [place] 13.8, Plt Count 162, MPV 11.4, Immature Gran % (Auto) 0.300, Neut % (Auto) 83.7 H, Lymph % (Auto) 5.6 L, [place] % (Auto) 8.6, Eos % (Auto) 1.7, Baso % (Auto) 0.1, Absolute Neuts (auto) 9.2 H, Absolute Lymphs (auto) 0.61 L, Nucleated RBC % 0, Differential Comment SCANNED 07/21/20 08:31: Sodium 142, Potassium 3.8, Chloride 112 H, Carbon Dioxide 25.0, Anion Gap 5, BUN 23 H, Creatinine 0.83, Estim Creat Clear Calc 135.74, Est GFR (MDRD) Af Amer 128, Est GFR (MDRD) Non-Af 106, BUN/Creatinine Ratio 27.6 H, Glucose 103, Calcium 9.4, Total Bilirubin 0.60, AST 14 L, ALT 12 L, Alkaline Phosphatase 48, Total Protein 6.4, Albumin 2.6 L, Globulin 3.8, Albumin/Globulin Ratio 0.7 L, Lipase 320 Current Medications Acetaminophen (Tylenol) 650 mg PO Q6H PRN PRN PRN Reason: Pain Score 1-10/10 Last Admin: 07/20/20 17:54 Dose: 650 mg Documented by: Buspirone HCl (Buspar) 15 mg PO BID [facility] Last Admin: 07/21/20 09:58 Dose: 15 mg Documented by: Citalopram Hydrobromide (Celexa) 20 mg PO DAILY [facility] Last Admin: 07/21/20 09:59 Dose: 20 mg Documented by: Docusate Sodium (Colace) 100 mg PO BID PRN PRN PRN Reason: Constipation Last Admin: 07/20/20 17:54 Dose: 100 mg Documented by: Enoxaparin Sodium (Lovenox) 140 mg SC Q12 [facility] Last Admin: 07/21/20 09:58 Dose: 140 mg Documented by: Hydromorphone HCl (Dilaudid Inj) 1 mg IV Q2H PRN PRN PRN Reason: Pain Score 6-10/10 Last Admin: 07/21/20 11:43 Dose: 1 mg Documented by: Pantoprazole Sodium 40 mg/ (Sodium Chloride) 110 mls @ 330 mls/hr IV Q12 [facility] Last Infusion: 07/21/20 12:16 Dose: Infused Documented by: Piperacillin Sod/Tazobactam (Sod 3.375 gm/ Sodium Chloride) 50 mls @ 12.5 mls/hr IV Q8 [facility] Last Admin: 07/21/20 14:24 Dose: 12.5 mls/hr Documented by: Sodium Chloride () 250 mls @ 15 mls/hr IV .[id number] PRN PRN Reason: Saline Flush Last Infusion: 07/20/20 13:27 Dose: 0 mls/hr Documented by: Sodium Chloride () 250 mls @ 15 mls/hr IV .[id number] PRN PRN Reason: Additional IVPB Infusion Potassium Chloride/Sodium Chloride () 1,000 mls @ 75 mls/hr IV .[id number] [facility] Last Infusion: 07/21/20 09:47 Dose: 75 mls/hr Documented by: Lisinopril (Zestril) 20 mg PO BID [facility] Last Admin: 07/21/20 09:58 Dose: 20 mg Documented by: Ondansetron HCl (Zofran) 4 mg IV Q8H PRN PRN PRN Reason: NAUSEA/VOMITING Last Admin: 07/19/20 02:26 Dose: 4 mg Documented by: Promethazine HCl (Phenergan) 25 mg IM Q6H PRN PRN PRN Reason: Breakthrough nausea/vomiting Sodium Chloride () 10 - 40 ml IV UD PRN PRN Reason: SALINE FLUSH Last Admin: 07/21/20 11:44 Dose: 10 ml Documented by: STROKE Vital Signs/Narrative: Vital Signs Temp Pulse Resp BP Pulse Ox 07/21/20 14:31 98.5 F 95 16 145/96 H 95 07/21/20 11:05 96 07/21/20 10:50 63 Medical Necessity - Tobacco Use Smoking Status: Former smoker Tobacco Use: Cigarettes Assessment/Plan All Active Problems Pancreatitis (Acute) Vertebral artery dissection (Resolved) Headache (Acute) 1. Fever, no source of infection. No fevers. WBC count improved Blood cultures are pending. Urine culture shows no growth. Chest x-ray showed left basilar atelectasis. Continue on empiric Zosyn. 2. Acute pancreatitis, unclear etiology, no h/o alcohol, slightly improved CT of the abdomen and pelvis confirms acute pancreatitis localized to the body and tail of the pancreas Admitting lipase is 3813, lipase is 320 Patient is on lisinopril and HCTZ but doubt that is contributing to his acute pancreatitis We will continue with n.p.o. status, IV fluids, pain control Follow-up on general surgery recommendations 3. Hypomagnesemia, resolved, magnesium is 2.1 4. Hypercoagulable state, unclear diagnosis, On therapeutic Lovenox. Would continue to hold off on Coumadin. 5. Hyperlipidemia,uncontrolled We will hold off on statin for now 6. H/o Vertebral artery dissection, no signs of dissection 7. Anxiety/depression, on anxiolytics 8. DVT PPx- on therapeutic Lovenox Inpatient E&M: 86599 Subs Hosp L2
[2020-07-22 02:00] VITALS: BP 141/84; PULSE 77; RESP 18; TEMP 36.6; O2SAT 95
[2020-07-22] MEDS: HYDROmorphone 1 MG/ML Syringe IV (04:36)
[2020-07-22 04:52] LABS: Absolute Lymphocyte Count 0.96 X10^3/uL (0.83-4.51); Absolute Neutrophil Count 7.3 X10^3/uL (2.0-7.7); Basophil# 0.01 X10^3/uL; Basophil% 0.1 % (0-1); Eosinophil# 0.02 X10^3/uL; Eosinophils% 0.2 % (0-5); Hematocrit 36.2 % (40-54); Hemoglobin 11.6 g/dL (13.0-16.5); Lymphocyte # 0.96 X10^3/ul (4.0); Lymphocyte % 10.7 % (19-41); Mean Corpuscular Hgb 28.3 pg (27.0-32.0); Mean Corpuscular Volume 88.3 fL (80-94); Mean Platelet Vol. 11.4 fl (6.2-12.0); Monocyte# 0.72 X10^3/uL; NRBC Flagged by Analyzer 0 % (0-5); Neutrophil # 7.26 X10^3/uL (2.7-7.7); Neutrophil % 80.8 % (47-70); Platelet Count 200 K/mm3 (150-450); RBC Distribution Width CV 13.8 % (11.6-14.6); RBC Distribution Width SD 44.7 fl (35.1-43.9)
[2020-07-22 05:05] LABS: ALB/GLOB Ratio 0.7 RATIO (0.9-2.4); AST(SGOT) 14 U/L (15-37); Alanine Aminotransfer ALT/SGPT 15 U/L (16-61); Albumin, Serum 2.6 g/dL (3.2-5.0); Alkaline Phosphatase 51 U/L (45-117); Anion Gap 7 (5-15); BUN 23 mg/dL (7-18); Calcium,Total 9.2 mg/dL (8.5-10.1); Chloride 109 mmol/L (98-107); EST Glomerular Filtration Rate 131 mL/min (>60); Est Glom Filt Rate - Afr Amer 158 mL/min (>60); Estimated Creatinine Clearance 160.95 ml/min; Globulin 3.9 g/dL (2.2-4.2); Glucose 95 mg/dL (74-106); Potassium 3.8 mmol/L (3.5-5.1); Protein, Total 6.5 g/dL (6.4-8.2); Sodium Level 142 mmol/L (136-145)
--- NOTE | 2020-07-22 06:36 | PCM.PN.SRG ---
Patient Problems: Active and Suspected Problems Pancreatitis (Acute) Subjective: Patient is much less tender this morning - Physical Exam Vitals/I&O's: Vital Signs Temp Pulse Resp BP Pulse Ox 97.8 F 77 18 141/84 H 95 07/22/20 02:00 07/22/20 02:00 07/22/20 02:00 07/22/20 02:00 07/22/20 02:00 Oxygen Flow Rate (L/min) 2 Oxygen Delivery Method Room Air Weight: 315 lb 0.014 oz Body Mass Index (BMI) 39.4 Intake and Output for Last 24 Hours 07/20/20 07/21/20 07/22/20 23:59 23:59 23:59 Intake Total 3320.92 / 3320.92 2518.33 / 2518.33 187.25 / 187.25 Balance 3320.92 / 3320.92 2518.33 / 2518.33 187.25 / 187.25 General: Alert, Oriented x3 Neck: No JVD Lungs: Clear to auscultation, Normal air movement Abdomen: Soft, Non Tender, Non-Distended Microbiology Past 72 Hours 07/19/20 17:30 Urine, Clean Catch Urine Culture - Preliminary Culture exhibits no growth. Laboratory Results 07/21/20 08:31: WBC 11.0, RBC 4.17 L, Hgb 11.8 L, Hct 36.9 L, MCV 88.5, MCH 28.3, MCHC 32.0, RDW Std Deviation 44.8 H, RDW Coeff of Foster 13.8, Plt Count 162, MPV 11.4, Immature Gran % (Auto) 0.300, Neut % (Auto) 83.7 H, Lymph % (Auto) 5.6 L, Barry % (Auto) 8.6, Eos % (Auto) 1.7, Baso % (Auto) 0.1, Absolute Neuts (auto) 9.2 H, Absolute Lymphs (auto) 0.61 L, Nucleated RBC % 0, Differential Comment SCANNED 07/21/20 08:31: Sodium 142, Potassium 3.8, Chloride 112 H, Carbon Dioxide 25.0, Anion Gap 5, BUN 23 H, Creatinine 0.83, Estim Creat Clear Calc 135.74, Est GFR (MDRD) Af Amer 128, Est GFR (MDRD) Non-Af 106, BUN/Creatinine Ratio 27.6 H, Glucose 103, Calcium 9.4, Total Bilirubin 0.60, AST 14 L, ALT 12 L, Alkaline Phosphatase 48, Total Protein 6.4, Albumin 2.6 L, Globulin 3.8, Albumin/Globulin Ratio 0.7 L, Lipase 320 07/22/20 04:15: WBC 9.0, RBC 4.10 L, Hgb 11.6 L, Hct 36.2 L, MCV 88.3, MCH 28.3, MCHC 32.0, RDW Std Deviation 44.7 H, RDW Coeff of Foster 13.8, Plt Count 200, MPV 11.4, Immature Gran % (Auto) 0.200, Neut % (Auto) 80.8 H, Lymph % (Auto) 10.7 L, Barry % (Auto) 8.0, Eos % (Auto) 0.2, Baso % (Auto) 0.1, Absolute Neuts (auto) 7.3, Absolute Lymphs (auto) 0.96, Nucleated RBC % 0 07/22/20 04:15: Sodium 142, Potassium 3.8, Chloride 109 H, Carbon Dioxide 26.0, Anion Gap 7, BUN 23 H, Creatinine 0.70, Estim Creat Clear Calc 160.95, Est GFR (MDRD) Af Amer 158, Est GFR (MDRD) Non-Af 131, BUN/Creatinine Ratio 33.0 H, Glucose 95, Calcium 9.2, Total Bilirubin 0.70, AST 14 L, ALT 15 L, Alkaline Phosphatase 51, Total Protein 6.5, Albumin 2.6 L, Globulin 3.9, Albumin/Globulin Ratio 0.7 L Current Medications Acetaminophen (Tylenol) 650 mg PO Q6H PRN PRN PRN Reason: Pain Score 1-10/10 Last Admin: 07/20/20 17:54 Dose: 650 mg Documented by: Buspirone HCl (Buspar) 15 mg PO BID [facility] Last Admin: 07/21/20 21:19 Dose: 15 mg Documented by: Citalopram Hydrobromide (Celexa) 20 mg PO DAILY [facility] Last Admin: 07/21/20 09:59 Dose: 20 mg Documented by: Docusate Sodium (Colace) 100 mg PO BID PRN PRN PRN Reason: Constipation Last Admin: 07/20/20 17:54 Dose: 100 mg Documented by: Enoxaparin Sodium (Lovenox) 140 mg SC Q12 [facility] Last Admin: 07/21/20 21:19 Dose: 140 mg Documented by: Hydromorphone HCl (Dilaudid Inj) 1 mg IV Q2H PRN PRN PRN Reason: Pain Score 6-10/10 Last Admin: 07/22/20 04:36 Dose: 1 mg Documented by: Pantoprazole Sodium 40 mg/ (Sodium Chloride) 110 mls @ 330 mls/hr IV Q12 [facility] Last Infusion: 07/21/20 21:40 Dose: Infused Documented by: Piperacillin Sod/Tazobactam (Sod 3.375 gm/ Sodium Chloride) 50 mls @ 12.5 mls/hr IV Q8 [facility] Last Admin: 07/22/20 05:07 Dose: 12.5 mls/hr Documented by: Sodium Chloride () 250 mls @ 15 mls/hr IV .[id number] PRN PRN Reason: Saline Flush Last Infusion: 07/22/20 05:09 Dose: 0 mls/hr Documented by: Sodium Chloride () 250 mls @ 15 mls/hr IV .[id number] PRN PRN Reason: Additional IVPB Infusion Potassium Chloride/Sodium Chloride () 1,000 mls @ 75 mls/hr IV .[id number] [facility] Last Admin: 07/21/20 21:20 Dose: 75 mls/hr Documented by: Lisinopril (Zestril) 20 mg PO BID [facility] Last Admin: 07/21/20 21:21 Dose: 20 mg Documented by: Ondansetron HCl (Zofran) 4 mg IV Q8H PRN PRN PRN Reason: NAUSEA/VOMITING Last Admin: 07/19/20 02:26 Dose: 4 mg Documented by: Promethazine HCl (Phenergan) 25 mg IM Q6H PRN PRN PRN Reason: Breakthrough nausea/vomiting Sodium Chloride () 10 - 40 ml IV UD PRN PRN Reason: SALINE FLUSH Last Admin: 07/21/20 19:43 Dose: 10 ml Documented by: Medical Necessity - Tobacco Use Smoking Status: Former smoker Tobacco Use: Cigarettes Assessment/Plan All Active Problems Pancreatitis (Acute) Vertebral artery dissection (Resolved) Headache (Acute) 44-year-old male with acute pancreatitis 1. The patient has much less tenderness this morning and is markedly improved. I will start a clear liquid diet. Patient can advance to a low-fat diet as tolerated. Possible discharge tomorrow. No plans for surgery as he has no gallstones. Gary Wan MD Pager: [facility] [address] [place] [address] [address] [place] [address] Office:
[2020-07-22 06:50] VITALS: O2SAT 88
[2020-07-22 08:19] VITALS: BP 142/76; PULSE 93; RESP 16; TEMP 36.6; O2SAT 99
[2020-07-22] MEDS: Enoxaparin 150 MG/ML Syringe 140 MG SC ×2 (09:55→21:04)
[2020-07-22] MEDS: Citalopram 20 MG Tablet PO (09:55)
[2020-07-22] MEDS: busPIRone 15 MG TABLET PO ×2 (09:55→21:04)
[2020-07-22] MEDS: Pantoprazole Sodium 40 MG Tablet PO (09:58)
[2020-07-22] MEDS: Lisinopril 20 MG Tablet PO ×2 (10:03→21:04)
--- NOTE | 2020-07-22 11:40 | PCM.PN.HOSP ---
Patient Problems: Active and Suspected Problems Pancreatitis (Acute) Reason for Visit: Follow-up on acute pancreatitis Subjective: Patient was seen and examined. Abdominal pain is much improved. He has been moving his bowel. He also has been ambulating. He has been started on clear liquid diet. Objective: Physical exam: General: Alert, Oriented x3, Cooperative, No apparent distress, Well developed, Well nourished, obese, in mild discomfort HEENT: Atraumatic, PERRLA, EOMI, Normocephalic, EAC Clear Oral: No Gingival or Mucosal Lesions/ Ulcerations, Dry Mucosa, - - Mallampati 2 Neck: Supple, No JVD, Negative Carotid Bruits, Negative Hepatojugular Reflux, No Nodes, Trachea Midline, Thyroid Normal Size and Texture Lungs: Clear to auscultation, Normal air movement, No rhonchi, No wheeze, No rales Cardiovascular: Regular rate, Regular Rhythm, Normal S1, Normal S2, No murmurs, No Ectopic Activity, No rub noted, No Gallop Abdomen: Bowel Sounds Present, Soft, Non-Distended, No Hepato-splenomegaly, Obese, Tender - epigastrium and LUQ Extremities: No clubbing, No cyanosis, No edema, Capillary Refill Less than 3 Seconds, No Calf Tenderness, Peripheral Pulses Normal Skin: No rashes, No breakdown Musculoskeletal: No Tenderness to Palpation of Joints or Extremities, No Muscle Wasting Lymphatic: No Cervical, Supraclavicular, or Inguinal Adenopathy Neurological: Cranial nerves II-XII grossly intact, Deep Tendon Reflexes 2+/4 and Symmetrical, Neuro grossly intact, Motor Exam 5/5 strength throughout, Muscle tone normal, Sensory exam intact to light touch and pain, Coordination normal Psych/Mental Status: Normal Affect, Appropriate, Alert and oriented to time, place, person, mood and affect Vitals/I&O's: Vital Signs Temp Pulse Resp BP Pulse Ox 97.9 F 93 16 142/76 H 99 07/22/20 08:07/22/20 08:07/22/20 08:19 07/22/20 08:07/22/20 08:19 Oxygen Flow Rate (L/min) 2 Oxygen Delivery Method Room Air Weight: 142.882 kg Body Mass Index (BMI) 39.4 Intake and Output for Last 24 Hours 07/20/20 07/21/20 07/22/20 23:59 23:59 23:59 Intake Total 3320.92 / 3320.92 2518.33 / 2518.33 1156.00 / 1156.00 Balance 3320.92 / 3320.92 2518.33 / 2518.33 1156.00 / 1156.00 Microbiology Past 72 Hours 07/19/20 16:20 Blood Culture (Wb) - Anticubital Right Blood Culture - Preliminary No growth in 48 hours. 07/19/20 16:25 Blood Culture (Wb) - Left Hand Blood Culture - Preliminary No growth in 48 hours. 07/19/20 17:30 Urine, Clean Catch Urine Culture - Final Culture exhibits no growth. Laboratory Results 07/22/20 04:15: WBC 9.0, RBC 4.10 L, Hgb 11.6 L, Hct 36.2 L, MCV 88.3, MCH 28.3, MCHC 32.0, RDW Std Deviation 44.7 H, RDW Coeff of Foster 13.8, Plt Count 200, MPV 11.4, Immature Gran % (Auto) 0.200, Neut % (Auto) 80.8 H, Lymph % (Auto) 10.7 L, [place] % (Auto) 8.0, Eos % (Auto) 0.2, Baso % (Auto) 0.1, Absolute Neuts (auto) 7.3, Absolute Lymphs (auto) 0.96, Nucleated RBC % 0 07/22/20 04:15: Sodium 142, Potassium 3.8, Chloride 109 H, Carbon Dioxide 26.0, Anion Gap 7, BUN 23 H, Creatinine 0.70, Estim Creat Clear Calc 160.95, Est GFR (MDRD) Af Amer 158, Est GFR (MDRD) Non-Af 131, BUN/Creatinine Ratio 33.0 H, Glucose 95, Calcium 9.2, Total Bilirubin 0.70, AST 14 L, ALT 15 L, Alkaline Phosphatase 51, Total Protein 6.5, Albumin 2.6 L, Globulin 3.9, Albumin/Globulin Ratio 0.7 L Current Medications Acetaminophen (Tylenol) 650 mg PO Q6H PRN PRN PRN Reason: Pain Score 1-10/10 Last Admin: 07/20/20 17:54 Dose: 650 mg Documented by: Buspirone HCl (Buspar) 15 mg PO BID [facility] Last Admin: 07/22/20 09:55 Dose: 15 mg Documented by: Citalopram Hydrobromide (Celexa) 20 mg PO DAILY [facility] Last Admin: 07/22/20 09:55 Dose: 20 mg Documented by: Docusate Sodium (Colace) 100 mg PO BID PRN PRN PRN Reason: Constipation Last Admin: 07/20/20 17:54 Dose: 100 mg Documented by: Enoxaparin Sodium (Lovenox) 140 mg SC Q12 [facility] Last Admin: 07/22/20 09:55 Dose: 140 mg Documented by: Sodium Chloride () 250 mls @ 15 mls/hr IV .[id number] PRN PRN Reason: Saline Flush Last Infusion: 07/22/20 09:34 Dose: Infused Documented by: Sodium Chloride () 250 mls @ 15 mls/hr IV .[id number] PRN PRN Reason: Additional IVPB Infusion Lisinopril (Zestril) 20 mg PO BID [facility] Last Admin: 07/22/20 10:03 Dose: 20 mg Documented by: Ondansetron HCl (Zofran) 4 mg IV Q8H PRN PRN PRN Reason: NAUSEA/VOMITING Last Admin: 07/19/20 02:26 Dose: 4 mg Documented by: Pantoprazole Sodium (Protonix) 40 mg PO DAILY [facility] Last Admin: 07/22/20 09:58 Dose: 40 mg Documented by: Sodium Chloride () 10 - 40 ml IV UD PRN PRN Reason: SALINE FLUSH Last Admin: 07/21/20 19:43 Dose: 10 ml Documented by: STROKE Vital Signs/Narrative: Vital Signs Temp Pulse Resp BP Pulse Ox 07/22/20 08:19 97.9 F 93 16 142/76 H 99 Medical Necessity - Tobacco Use Smoking Status: Former smoker Tobacco Use: Cigarettes Assessment/Plan All Active Problems Pancreatitis (Acute) Vertebral artery dissection (Resolved) Headache (Acute) 1. Fever, no source of infection, present earlier on in admission; likely secondary to atelectasis WBC count is normal now. Blood and urine cultures are negative Chest x-ray showed left basilar atelectasis. Will discontinue IV antibiotics 2. Acute pancreatitis, unclear etiology, no h/o alcohol, slightly improved CT of the abdomen and pelvis confirms acute pancreatitis localized to the body and tail of the pancreas Admitting lipase is 3813, lipase on 07/21/20 was 320 Patient is on lisinopril and HCTZ but doubt that is contributing to his acute pancreatitis We will continue with n.p.o. status, IV fluids, pain control Follow-up on general surgery recommendations 3. Hypomagnesemia, resolved 4. Hypercoagulable state, unclear diagnosis, on therapeutic Lovenox. Discussed with covering doctor for Dr. Hernandez - Dr. Gr, patient's outpatient records indicate that he supposed to be on long-term anticoagulation. There is documentation of noncompliance with medication. Unclear the type of hypercoagulable state. We will continue on therapeutic Lovenox for now. Patient should be evaluated for oral anticoagulant such as Eliquis or Xarelto prior to discharge. 5. Hyperlipidemia,uncontrolled We will hold off on statin for now 6. Hypertension, controlled, continue lisinopril Continue to hold hydrochlorothiazide. Possible resumption at discharge. 7. H/o Vertebral artery dissection, no signs of dissection 8. Anxiety/depression, on anxiolytics -BuSpar, Celexa 9. DVT PPx- on therapeutic Lovenox Inpatient E&M: 50655 Subs Hosp L2
[2020-07-22] MEDS: Acetaminophen 325 MG Tablet 650 MG PO ×2 (11:45→21:09)
[2020-07-22 13:54] VITALS: BP 117/80; PULSE 50; RESP 16; TEMP 36.7; O2SAT 100
[2020-07-22] MEDS: oxyCODONE 5 MG Tablet PO ×2 (14:27→21:09)
--- NOTE | 2020-07-22 17:24 | NURSING ---
request for medical records sent to [facility] fax#: [phone] 07/22/20 @ 2201
[2020-07-22] MEDS: Docusate Sodium 100 MG Capsule PO (21:09)
[2020-07-22 21:22] VITALS: BP 147/86; PULSE 97; RESP 18; TEMP 36.9; O2SAT 97
--- NOTE | 2020-07-22 21:31 | NURSING ---
pt complaint of lower left back pain offered ice, heat, moving to chair, repositioning, walking, offered to call dr hammer declined. prn pain meds given per order. pt complaint of feeling constipated colace given per order. stated abd discomfort from pancreatitis is better. called in while rn was in room pt states he doesnt have anything to relay to but ok to give her an update on how he is feeling. called by rn.
[2020-07-23] MEDS: oxyCODONE 5 MG Tablet PO ×3 (02:54→16:00)
[2020-07-23] MEDS: Acetaminophen 325 MG Tablet 650 MG PO ×3 (02:55→16:00)
[2020-07-23 02:57] VITALS: BP 151/95; PULSE 50; RESP 16; TEMP 36.6; O2SAT 98
[2020-07-23 07:20] VITALS: O2SAT 96
--- NOTE | 2020-07-23 07:45 | PN_ITS ---
Patient Problems: Active and Suspected Problems Pancreatitis (Acute) Subjective: Tolerating a diet specifically clears at this time with no nausea or recurrent emesis but states he has ongoing abdominal discomfort now more so in the left lower quadrant as opposed epigastric region but still some discomfort in the epigastric region primarily with palpation. He denies any recent bowel movements including diarrhea but does state as though he feels he go but has been unable. He does state that he feels mildly distended. He has been seen walking the halls in no obvious distress. Patient notes that he previously was on Coumadin for his hypercoagulable state, does not know which but discontinued this secondary to issues with lab checks and diet compliance. Patient denies fevers, chills, nausea, emesis, chest pain or dyspnea. Objective: Physical Examination: General: awake, alert, oriented x 3 and cooperative, seated upright in the medical surgical bed in no apparent distress. Skin: normal color, turgor, no icterus, cyanosis. HEENT: AT/NC, EOMI, PERRLA, MMM. Lungs: CTA bilaterally, moderate effort, mild decrease BL bases, no rales, ronchi or wheezing. Heart: Regular rate and rhythm; no gallop, rub audible. Abdomen: soft, obese, some still residual discomfort with epigastric palpation, some also discomfort to the left lower quadrant but lessened with distraction, no obvious rebound or guarding, appears mildly distended, hyperactive bowel sounds specially bilateral lower quadrants. Extremities: no cyanosis, clubbing, or edema. Neurological: patient awake, alert, oriented x 3; cognitive function intact; pupils equally reactive to light and accomodation; cranial nerves II-XII grossly normal, moving all 4 extremities, no focal deficits, strength mildly global decrease secondary to acute complaints but again has been witnessed walking the halls without any issue. Psychiatric: affect appears mildly irritable otherwise normal, no acute evidence of depressive or anxiety feelings. Vitals/I&O's: Vital Signs Temp Pulse Resp BP Pulse Ox 97.9 F 50 L 16 151/95 H 96 07/23/20 02:57 07/23/20 02:57 07/23/20 02:57 07/23/20 02:57 07/23/20 07:20 Oxygen Flow Rate (L/min) 2 Oxygen Delivery Method Room Air Weight: 315 lb 0.014 oz Body Mass Index (BMI) 39.4 Intake and Output for Last 24 Hours 07/21/20 07/22/20 07/23/20 23:59 23:59 23:59 Intake Total 2518.33 / 2518.33 1156.00 / 1156.00 Balance 2518.33 / 2518.33 1156.00 / 1156.00 Microbiology Past 72 Hours 07/19/20 16:20 Blood Culture (Wb) - Anticubital Right Blood Culture - Preliminary No growth in 48 hours. 07/19/20 16:25 Blood Culture (Wb) - Left Hand Blood Culture - Preliminary No growth in 48 hours. 07/19/20 17:30 Urine, Clean Catch Urine Culture - Final Culture exhibits no growth. Current Medications Acetaminophen (Tylenol) 650 mg PO Q6H PRN PRN PRN Reason: Pain Score 1-10/10 Last Admin: 07/23/20 02:55 Dose: 650 mg Documented by: Buspirone HCl (Buspar) 15 mg PO BID [facility] Last Admin: 07/22/20 21:04 Dose: 15 mg Documented by: Citalopram Hydrobromide (Celexa) 20 mg PO DAILY [facility] Last Admin: 07/22/20 09:55 Dose: 20 mg Documented by: Docusate Sodium (Colace) 100 mg PO BID PRN PRN PRN Reason: Constipation Last Admin: 07/22/20 21:09 Dose: 100 mg Documented by: Enoxaparin Sodium (Lovenox) 140 mg SC Q12 [facility] Last Admin: 07/22/20 21:04 Dose: 140 mg Documented by: Hydromorphone HCl (Dilaudid Inj) 1 mg IV Q4H PRN PRN PRN Reason: Pain Score 6-10/10 Sodium Chloride () 250 mls @ 15 mls/hr IV .[id number] PRN PRN Reason: Saline Flush Last Infusion: 07/22/20 09:34 Dose: Infused Documented by: Sodium Chloride () 250 mls @ 15 mls/hr IV .[id number] PRN PRN Reason: Additional IVPB Infusion Lisinopril (Zestril) 20 mg PO BID [facility] Last Admin: 07/22/20 21:04 Dose: 20 mg Documented by: Ondansetron HCl (Zofran) 4 mg IV Q8H PRN PRN PRN Reason: NAUSEA/VOMITING Last Admin: 07/19/20 02:26 Dose: 4 mg Documented by: Oxycodone HCl (Oxyir) 5 mg PO Q4H PRN PRN PRN Reason: Pain Score 6-10/10 Last Admin: 07/23/20 02:54 Dose: 5 mg Documented by: Pantoprazole Sodium (Protonix) 40 mg PO DAILY [facility] Last Admin: 07/22/20 09:58 Dose: 40 mg Documented by: Sodium Chloride () 10 - 40 ml IV UD PRN PRN Reason: SALINE FLUSH Last Admin: 07/21/20 19:43 Dose: 10 ml Documented by: STROKE Vital Signs/Narrative: Vital Signs Pulse Ox 07/23/20 07:20 96 Medical Necessity - Tobacco Use Smoking Status: Former smoker Tobacco Use: Cigarettes Assessment/Plan All Active Problems Pancreatitis (Acute) Vertebral artery dissection (Resolved) Headache (Acute) The patient is a 44 y/o M w/ PMHx: HTN, HLD, Unclear Hypercoagulable state non- compliant with anticoagulation on therapeutic lovenox, Hx Vertebral dissection, Depression, Known Hypertriglyceridemia, Allergic Rhinitis who presents to the [facility] ED on 07/18/20 with history of abdominal discomfort radiating towards back with associated nausea and emesis worsening over 48 hours prompting ED evaluation. 1. Acute pancreatitis w/ abdominal pain, N/V: Admission abdominal ultrasound with thick-walled gallbladder multiple polyps with no obvious shadowing of stones, follow-up CT abdomen pelvis with findings consistent with acute pancreatitis localized to the body and tail of the pancreas with a small amount of free fluid in the left anterior pararenal space as well as incidental finding of a small solid cortical nodule of the left kidney of unclear etiology, initial ED lipase 3813. Patient mid to medical surgical floor, maintained on IV fluids, initially n.p.o. status with transition to clears once improving per surgery discretion however ongoing various issues, plan repeat CT abdomen pelvis on 07/23/2020 per surgery discretion, admission lipase 3813-->1966-->normalized 07/21/20 320, FLP panel not market with triglycerides 141, total cholesterol 229, LDL 160, VLDL 28, HDL 41, denies alcohol intake as etiology, continue, PPI, continue pain regimen with oral and IV. 2. Fever, Unclear Etiology, Possibly atelectasis: CBC during admission transiently increased up to 15.3 with left shift however normalized, blood culture x2 without growth, urine culture without growth, chest x-ray with limited inspiration with left basilar atelectasis is only possible concerning source, initial CT abdomen pelvis not marked appearing however planned 07/23/[address] abdomen and pelvis per surgery discretion. Patient has been afebrile since 07/19/2020 with only elevated temperature on 07/20/2020 99.9 otherwise normalized. Patient had been on antibiotic therapy but this was discontinued on 07/22/2020. 3. Incidental small solid cortical nodule left kidney: Unclear etiology, will need follow-up imaging, possibly repeated study with contrast versus MRI to further assess however this may also be done outpatient. 4. Unclear hypercoagulable state: Unclear specific state, noted noncompliance per PCP outpatient discussion with hospitalist service, will maintain on therapeutic Lovenox currently pending further surgery evaluation however will need to assess cost for possible Eliquis versus Xarelto at discharge. 5. Hypertension: Continue home regimen including lisinopril, holding patient hydrochlorothiazide with addition once appropriate, PRN hydralazine. 6. Hyperlipidemia: Not on regimen, defer to outpatient specially given presentation. 7. Anxiety and depression: We will continue patient home BuSpar and Celexa regimen. 8. Allergic rhinitis: We will continue patient home Claritin regimen. 9. Obesity: Weight loss and lifestyle changes encouraged. 10. DVT prophylaxis: SCDs, Lovenox. Inpatient E&M: 27692 [facility] Hosp L3
--- NOTE | 2020-07-23 07:48 | PCM.PN.SRG ---
Patient Problems: Active and Suspected Problems Pancreatitis (Acute) Subjective: The patient reports that his epigastric pain is improving but he is having left lower quadrant pain. He tolerated clear liquids yesterday. - Physical Exam Vitals/I&O's: Vital Signs Temp Pulse Resp BP Pulse Ox 97.9 F 50 L 16 151/95 H 96 07/23/20 02:57 07/23/20 02:57 07/23/20 02:57 07/23/20 02:57 07/23/20 07:20 Oxygen Flow Rate (L/min) 2 Oxygen Delivery Method Room Air Weight: 315 lb 0.014 oz Body Mass Index (BMI) 39.4 Intake and Output for Last 24 Hours 07/21/20 07/22/20 07/23/20 23:59 23:59 23:59 Intake Total 2518.33 / 2518.33 1156.00 / 1156.00 Balance 2518.33 / 2518.33 1156.00 / 1156.00 General: Alert, Oriented x3 Lungs: Normal air movement Cardiovascular: Regular rate, Regular Rhythm Abdomen: Soft, Non-Distended, Tender - Tender in the epigastric region but this is improved. Left lower quadrant pain to palpation Microbiology Past 72 Hours 07/19/20 16:20 Blood Culture (Wb) - Anticubital Right Blood Culture - Preliminary No growth in 48 hours. 07/19/20 16:25 Blood Culture (Wb) - Left Hand Blood Culture - Preliminary No growth in 48 hours. 07/19/20 17:30 Urine, Clean Catch Urine Culture - Final Culture exhibits no growth. Current Medications Acetaminophen (Tylenol) 650 mg PO Q6H PRN PRN PRN Reason: Pain Score 1-10/10 Last Admin: 07/23/20 02:55 Dose: 650 mg Documented by: Buspirone HCl (Buspar) 15 mg PO BID [facility] Last Admin: 07/22/20 21:04 Dose: 15 mg Documented by: Citalopram Hydrobromide (Celexa) 20 mg PO DAILY [facility] Last Admin: 07/22/20 09:55 Dose: 20 mg Documented by: Docusate Sodium (Colace) 100 mg PO BID PRN PRN PRN Reason: Constipation Last Admin: 07/22/20 21:09 Dose: 100 mg Documented by: Enoxaparin Sodium (Lovenox) 140 mg SC Q12 [facility] Last Admin: 07/22/20 21:04 Dose: 140 mg Documented by: Hydromorphone HCl (Dilaudid Inj) 1 mg IV Q4H PRN PRN PRN Reason: Pain Score 6-10/10 Sodium Chloride () 250 mls @ 15 mls/hr IV .[id number] PRN PRN Reason: Saline Flush Last Infusion: 07/22/20 09:34 Dose: Infused Documented by: Sodium Chloride () 250 mls @ 15 mls/hr IV .[id number] PRN PRN Reason: Additional IVPB Infusion Lisinopril (Zestril) 20 mg PO BID [facility] Last Admin: 07/22/20 21:04 Dose: 20 mg Documented by: Ondansetron HCl (Zofran) 4 mg IV Q8H PRN PRN PRN Reason: NAUSEA/VOMITING Last Admin: 07/19/20 02:26 Dose: 4 mg Documented by: Oxycodone HCl (Oxyir) 5 mg PO Q4H PRN PRN PRN Reason: Pain Score 6-10/10 Last Admin: 07/23/20 02:54 Dose: 5 mg Documented by: Pantoprazole Sodium (Protonix) 40 mg PO DAILY [facility] Last Admin: 07/22/20 09:58 Dose: 40 mg Documented by: Sodium Chloride () 10 - 40 ml IV UD PRN PRN Reason: SALINE FLUSH Last Admin: 07/21/20 19:43 Dose: 10 ml Documented by: Medical Necessity - Tobacco Use Smoking Status: Former smoker Tobacco Use: Cigarettes Assessment/Plan All Active Problems Pancreatitis (Acute) Vertebral artery dissection (Resolved) Headache (Acute) 44-year-old male with pancreatitis 1. Patient is still having left lower quadrant pain which he reports was pretty severe yesterday evening. Patient reports his epigastric pain is improving. I will obtain a CT scan with oral and IV contrast. Patient may have full liquids. If he tolerates full liquids and the CT scan is normal he can advance to a low-fat diet this afternoon and possibly discharge home. 2. I would like him to follow-up with me as an outpatient to discuss the risks and benefits of possible cholecystectomy. Gary Wan MD Pager: [facility] [address] [place] [address], [address] [place] [address] Office:
[2020-07-23 09:00] VITALS: BP 155/92; PULSE 68; RESP 18; TEMP 36.6; O2SAT 100
--- NOTE | 2020-07-23 09:15 | CT_ITS ---
STUDY: CT ABDOMEN AND PELVIS WITH CONTRAST REASON FOR EXAM: Male, 44 years old. PANCREATITIS LLQ PAIN RADIATION DOSAGE (If Supplied By Facility): CTDIvol = ( 18.76 ) mGy, DLP = ( 1479.97 ) mGycm TECHNIQUE: Transaxial images were obtained from the dome of the diaphragm to the symphysis pubis with oral contrast. Oral and amp; IV Breeza and amp; 100mL Isovue-370 was administered. Sagittal and coronal images were reconstructed. Individualized dose optimization techniques were used for this CT. COMPARISON: Comparison is made with prior study dated 07/18/2020. FINDINGS: There now is evidence of a small left pleural effusion with left lower lobe consolidation. The visualized portions of the heart are within normal limits. There is decreased attenuation of the liver consistent with steatosis. Small amount of perihepatic fluid. Normal gallbladder and extrahepatic biliary system. Small amount of perisplenic fluid. There is diffuse enlargement of the pancreas with sergio-pancreatic edema suggesting acute pancreatitis. Small amount of fluid is seen in the anterior pararenal space. Increased markings are seen within the peritoneal fat in the left upper quadrant. Normal bilateral adrenal glands. Normal right kidney. Persistent 2.5 cm by 1.7 cm solid nodule in the superior lateral aspect of the left kidney. A neoplastic process should be ruled out. Normal visualized stomach. Normal small intestine. Normal colon. The appendix is visualized and appears normal. Normal abdominal aorta. Normal inferior vena cava. Normal retroperitoneum. Normal urinary bladder. Small amount of fluid is seen in the pelvis. Central prostatic calcification. Normal abdominal wall. There are mild degenerative changes of the visualized lumbar spine. CT/Abdomen/Pelvis WITH Contrast IMPRESSION: Since prior examination, there is a new left pleural effusion with left lower lobe consolidation. Progressive peripancreatic inflammatory changes as described. Small amount of the pelvic fluid. Small amount of fluid is seen in the paracolic gutters bilaterally. Persistent 2.5 cm x 1.7 cm solid nodule in the superior lateral aspect of the left kidney. An neoplastic process should be ruled out. Electronically Signed: Joseph Saldana, at 10:00 EDT , Service support ,
[2020-07-23] MEDS: Citalopram 20 MG Tablet PO (09:52)
[2020-07-23] MEDS: Loratadine 10 MG Tablet PO (09:52)
[2020-07-23] MEDS: busPIRone 15 MG TABLET PO ×2 (09:52→21:54)
[2020-07-23] MEDS: Pantoprazole Sodium 40 MG Tablet PO (09:52)
[2020-07-23] MEDS: Lisinopril 20 MG Tablet PO ×2 (09:52→21:54)
[2020-07-23] MEDS: Enoxaparin 150 MG/ML Syringe 140 MG SC ×2 (09:53→21:54)
[2020-07-23] MEDS: levoFLOXacin IV 750 MG/150 ML BAG 100 MG IV (12:21)
[2020-07-23] MEDS: 0.9% Saline Lock 10 ML Syringe IV ×3 (12:24→21:56)
[2020-07-23 15:00] VITALS: BP 146/88; PULSE 97; RESP 18; TEMP 36.9; O2SAT 98
--- NOTE | 2020-07-23 17:33 | CON.PCM_ITS ---
Problem List (1) Left renal mass Status: Acute Reason for Consult Date of Consultation: 07/23/20 Reason for Consultation: Left renal mass History of Present Illness: The patient is a 44 year old male with a complicated history of the vertebral artery dissection long time ago he is on Coumadin he now presents to the hospital with pancreatitis of unknown etiology had a CAT scan done also has a mass involving the left kidney that is about 2.5 cm in size certainly a enhancing mass concerning for a solid growth we discussed with the patient today that this could be a benign tumor or could also be a malignant tumor we discussed the potential that it could be a malignant tumor. Past Medical History Past Medical History (Chronic Problems): Chronic Problems HTN (hypertension) (Chronic) Dyslipidemia (Chronic) Hypercoagulable state (Chronic) Allergies hydrocodone bitartrate [From Vicodin] Adverse Reaction (Verified 07/18/20 13:41) Other Home Medications: Ambulatory Orders Medication Instructions Recorded Buspirone HCl 15 mg PO BID 07/18/20 Citalopram [Celexa] 20 mg PO DAILY 07/18/20 Hydrochlorothiazide [Hctz] 25 mg PO DAILY 07/18/20 Lisinopril [Zestril] 20 mg PO BID 07/18/20 Loratadine [Claritin] 10 mg PO DAILY 07/18/20 Surgical History: total knee arthroplasty Psychiatric History: No pertinent psych hx - STUDY: CT ABDOMEN AND PELVIS WITH CONTRAST REASON FOR EXAM: Male, 44 years old. PANCREATITIS LLQ PAIN RADIATION DOSAGE (If Supplied By Facility): CTDIvol = ( 18.76 ) mGy, DLP = ( 1479.97 ) mGycm TECHNIQUE: Transaxial images were obtained from the dome of the diaphragm to the symphysis pubis with oral contrast. Oral and amp; IV Breeza and amp; 100mL Isovue-370 was administered. Sagittal and coronal images were reconstructed. Individualized dose optimization techniques were used for this CT. COMPARISON: Comparison is made with prior study dated 07/18/2020. FINDINGS: There now is evidence of a small left pleural effusion with left lower lobe consolidation. The visualized portions of the heart are within normal limits. There is decreased attenuation of the liver consistent with steatosis. Small amount of perihepatic fluid. Normal gallbladder and extrahepatic biliary system. Small amount of perisplenic fluid. There is diffuse enlargement of the pancreas with sergio-pancreatic edema suggesting acute pancreatitis. Small amount of fluid is seen in the anterior pararenal space. Increased markings are seen within the peritoneal fat in the left upper quadrant. Normal bilateral adrenal glands. Normal right kidney. Persistent 2.5 cm by 1.7 cm solid nodule in the superior lateral aspect of the left kidney. A neoplastic process should be ruled out. Normal visualized stomach. Normal small intestine. Normal colon. The appendix is visualized and appears normal. Normal abdominal aorta. Normal inferior vena cava. Normal retroperitoneum. Normal urinary bladder. Small amount of fluid is seen in the pelvis. Central prostatic calcification. Normal abdominal wall. There are mild degenerative changes of the visualized lumbar spine. CT/Abdomen/Pelvis WITH Contrast IMPRESSION: Since prior examination, there is a new left pleural effusion with left lower lobe consolidation. Progressive peripancreatic inflammatory changes as described. Small amount of the pelvic fluid. Small amount of fluid is seen in the paracolic gutters bilaterally. Persistent 2.5 cm x 1.7 cm solid nodule in the superior lateral aspect of the left kidney. An neoplastic process should be ruled out. Lives: With Family Smoking Status: Former smoker Tobacco Use: Cigarettes Alcohol: Rare Drugs: None - *Family History Maternal History Items: - - Migraine headaches Review of Systems Constitutional: Denies: Chills, Fever, Weight Change HEENT: Denies: Head Aches, Sinus Congestion, Sinus Drainage Cardiovascular: Denies: Chest Pain, Palpitations Respiratory: Denies: Cough, Shortness of breath at rest, Sputum production Gastrointestinal: Reports: Abdominal Pain, Nausea, Vomiting Genitourinary: Denies: Dysuria Musculoskeletal: Denies: Joint Pain, Joint Tenderness Skin: Denies: Rash, Wounds Neurological: Denies: Numbness, Tingling, Focal weakness Psychiatric: Denies: Anxiety, Depression, Homicidal Ideations, Suicidal Ideations Hematologic/ Lymphatic: Denies: Easy Bruising, Easy Bleeding Physical Exam - Physical Exam Vital Signs Temp 98.4 F 07/23/20 15:00 Pulse 97 07/23/20 15:00 Resp 18 07/23/20 15:00 BP 146/88 H 07/23/20 15:00 Pulse Ox 98 07/23/20 15:00 Intake & Output 07/21/20 07/22/20 07/23/20 23:59 23:59 23:59 Intake Total 2518.33 / 2518.33 1156.00 / 1156.00 150 / 150 Balance 2518.33 / 2518.33 1156.00 / 1156.00 150 / 150 Weight: 142.882 kg Intake: Oral 150 / 150 Intake, IV Amount 2368.33 / 2368.33 1156.00 / 1156.00 150 / 150 0.9% Normal Saline 250 ML @ 15 0 / 0 137.25 / 137.25 mls/hr IV .[id number] PRN Rx#: [id number] KCL 20MEQ in 0.9% NS 1,000 ML @ 1997.33 / 1997.33 918.75 / 918.75 75 mls/hr IV .[id number] [facility] Rx#: [id number] Levaquin IV 750 mg In 150 ml @ 150 / 150 100 mls/hr IV Q24 [facility] Rx#: [id number] Protonix 40 MG In 0.9% Normal 220 / 220 Saline 100 ML @ 330 mls/hr IV Q12 [facility] Rx#:[id number] Zosyn 3.375 GM In 0.9% Normal 150 / 150 100 / 100 Saline 50 ML @ 12.5 mls/hr IV Q8 [facility] Rx#:[id number] Other: Number of Voids 2 2 Number of Bowel Movements 1 General: Alert, Oriented x3 HEENT: Atraumatic Oral: Moist Mucosa Neck: Supple Lungs: Clear to auscultation Cardiovascular: Regular rate Abdomen: Soft Microbiology Past 72 Hours 07/23/20 13:50 Streptococcus pneumoniae Antigen (M - Final Urine, Random 07/23/20 13:50 Legionella Antigen - Final Urine, Clean Catch 07/19/20 16:20 Blood Culture - Preliminary Blood Culture (Wb) - Anticubital Right No growth in 48 hours. 07/19/20 16:25 Blood Culture - Preliminary Blood Culture (Wb) - Left Hand No growth in 48 hours. 07/19/20 17:30 Urine Culture - Final Urine, Clean Catch Culture exhibits no growth. Assessment/Plan All Active Problems Pancreatitis (Acute) Left renal mass (Acute) Vertebral artery dissection (Resolved) Headache (Acute) 44-year-old male with multiple medical problems presents the hospital with acute pancreatitis CAT scan was found to have a 2.5 cm mass involving the left kidney solid enhancing mass certainly suspicious for a small malignancy. Discussed with the patient the options of management for now given his pancreatitis recommend hold off any surgical intervention he can follow-up in the in the office with me after discharge to consider intervention but I will need to make sure the pancreatitis is completely resolved probably do interval CT scan etc.
[2020-07-23] MEDS: Ketorolac 15 MG/ML Vial IV ×2 (17:53→21:55)
[2020-07-23 19:41] VITALS: BP 146/86; PULSE 81; RESP 18; TEMP 37.2; O2SAT 97
[2020-07-23] MEDS: oxyCODONE 5 MG Tablet 10 MG PO (21:59)
[2020-07-24 02:00] VITALS: BP 162/96; PULSE 80; RESP 18; TEMP 37; O2SAT 95
[2020-07-24] MEDS: 0.9% Saline Lock 10 ML Syringe IV (05:22)
[2020-07-24] MEDS: Ketorolac 15 MG/ML Vial IV (05:22)
[2020-07-24 06:30] LABS: Absolute Lymphocyte Count 0.97 X10^3/uL (0.83-4.51); Absolute Neutrophil Count 5.2 X10^3/uL (2.0-7.7); Basophil# 0.01 X10^3/uL; Basophil% 0.1 % (0-1); Eosinophil# 0.03 X10^3/uL; Eosinophils% 0.4 % (0-5); Hemoglobin 10.9 g/dL (13.0-16.5); Lymphocyte # 0.97 X10^3/ul (4.0); Lymphocyte % 13.7 % (19-41); Mean Corpuscular Hgb 28.5 pg (27.0-32.0); Mean Corpuscular Volume 86.4 fL (80-94); Mean Platelet Vol. 10.5 fl (6.2-12.0); Monocyte# 0.75 X10^3/uL; Monocyte% 10.6 % (0-10); NRBC Flagged by Analyzer 0 % (0-5); Neutrophil # 5.24 X10^3/uL (2.7-7.7); Neutrophil % 74.2 % (47-70); Platelet Count 206 K/mm3 (150-450); RBC Distribution Width CV 13.2 % (11.6-14.6); RBC Distribution Width SD 41.8 fl (35.1-43.9); Red Blood Count 3.82 M/mm3 (4.6-6.2); White Blood Count 7.1 K/mm3 (4.4-11.0)
[2020-07-24 06:57] LABS: ALB/GLOB Ratio 0.6 RATIO (0.9-2.4); AST(SGOT) 25 U/L (15-37); Alanine Aminotransfer ALT/SGPT 30 U/L (16-61); Albumin, Serum 2.3 g/dL (3.2-5.0); Alkaline Phosphatase 78 U/L (45-117); Anion Gap 4 (5-15); BUN 13 mg/dL (7-18); BUN/Creat Ratio 18.9 RATIO (10-20); Chloride 104 mmol/L (98-107); Creatinine, Serum 0.69 mg/dL (0.70-1.30); EST Glomerular Filtration Rate 132 mL/min (>60); Est Glom Filt Rate - Afr Amer 160 mL/min (>60); Estimated Creatinine Clearance 163.29 ml/min; Globulin 3.7 g/dL (2.2-4.2); Glucose 100 mg/dL (74-106); Lipase 239 U/L (73-393); Potassium 3.3 mmol/L (3.5-5.1); Sodium Level 138 mmol/L (136-145)
[2020-07-24 07:02] VITALS: O2SAT 94
--- NOTE | 2020-07-24 07:30 | DCINST_ITS ---
- Discharge Diagnoses Current Active Problems: Current Active and Chronic Problems 1. Acute pancreatitis w/ abdominal pain, N/V 2. LLL Pneumonia, unclear type, CAP 3. Incidental small solid cortical nodule left kidney, Unclear etiology 4. Unclear hypercoagulable state 5. Hypertension 6. Hyperlipidemia 7. Anxiety and depression 8. Allergic rhinitis 9. Obesity You will use the following diet at home:: Cardiac - Recommend continued low fat diet BUT do not substitute high sugar items for the low fat. Please eat small portions. If improving over the next several days may start to liberalize diet. Your food should be the consistency of: Regular Your liquids should be the consistency of: Regular/Thin Discharge Activity: Return to Normal Activity, May not drive while taking narcotic pain medications. May resume sexual activity in: No Restrictions Weight Bearing Status: Weight bearing as tolerated Call your doctor if you observe: Fever of 101 or Higher, Inability to urinate, Inability to have a bowel movement, Using more than one pad per hour, Shortness of breath, Dizziness, Fainting spells, Chest pain, Uncontrolled pain Instructions: Understanding Pancreatitis, Acute Pancreatitis, What Is Pneumonia?, Preventing Pneumonia, Treating Pneumonia, Using an Incentive Spirometer Additional Instructions: During the admission you had an incidentally noted 2.5 x 1.7 cm renal solid nodule. You were evaluated by Dr. Bell (Urology) and will have close follow-up care. A renal mass, or tumor, is an abnormal growth in the kidney. Some renal masses are benign (not cancerous) and some are malignant (cancerous) and this will be further investigated outpatient by Dr. Bell. Allergies/Adverse Reactions: Allergies hydrocodone bitartrate [From Vicodin] Adverse Reaction (Verified 07/18/20 13:41) Other Medications to take at Discharge Buspirone HCl 15 mg PO BID 07/18/20 Citalopram [Celexa] 20 mg PO DAILY 07/18/20 Hydrochlorothiazide [Hctz] 25 mg PO DAILY 07/18/20 Lisinopril [Zestril] 20 mg PO BID 07/18/20 Loratadine [Claritin] 10 mg PO DAILY 07/18/20 Apixaban [Eliquis] 5 mg PO UD #70 tab 07/24/20 Lactobacillus Acidophilus [Acidophilus] 1 tab PO BID #20 tab 07/24/20 Oxycodone [Oxyir] 10 mg PO Q4H PRN PRN 5 Days #40 tablet 07/24/20 Pantoprazole Sodium [Protonix] 40 mg PO DAILY #30 tab 07/24/20 levoFLOXacin tablet [Levaquin tablet] 750 mg PO DAILY #3 tab 07/24/20 traZODone [Desyrel] 50 - 100 mg PO QHS PRN #60 tab 07/24/20 The following prescriptions were given: Lactobacillus Acidophilus [Acidophilus] 1 tab PO BID #20 tab Transmission Status: Pending to [facility] traZODone [Desyrel] 50 - 100 mg PO QHS PRN #60 tab PRN Reason: Insomnia Transmission Status: Pending to [facility] Apixaban [Eliquis] 5 mg PO UD #70 tab Transmission Status: Pending to [facility] levoFLOXacin tablet [Levaquin tablet] 750 mg PO DAILY #3 tab Transmission Status: Pending to [facility] Oxycodone [Oxyir] 10 mg PO Q4H PRN PRN 5 Days #40 tablet PRN Reason: Pain Score 6-10/10 Transmission Status: Sent to [facility] Pantoprazole Sodium [Protonix] 40 mg PO DAILY #30 tab Transmission Status: Pending to [facility] Primary Care Physician: Karen Hernandez DO [Primary Care Provider] - Please follow up with your Primary Care Physician in: Follow-up within 3-5 days to review admission. Test Results: Test results from this visit will be discussed in further detail at your follow- up appointment, if applicable. Please Follow Up With: Toni Bell MD When: Follow-up in 1-[address] Bell discretion. Please Follow Up With: Gary Wan MD When: May contact office with any concerns/questions regarding acute pancreatitis Please Follow Up With: Follow-up as needed, no urgent follow-up needs. Proposed Discharge Date: 07/24/20
--- NOTE | 2020-07-24 07:30 | PN.SURG_ITS ---
Patient Problems: Active and Suspected Problems Pancreatitis (Acute) Left renal mass (Acute) Subjective: Patient reports his pain is improving. He tolerated low-fat diet yesterday evening with no nausea vomiting or increase in pain. - Physical Exam Vitals/I&O's: Vital Signs Temp Pulse Resp BP Pulse Ox 98.6 F 80 18 162/96 H 95 07/24/20 02:00 07/24/20 02:00 07/24/20 02:00 07/24/20 02:00 07/24/20 02:00 Oxygen Flow Rate (L/min) 2 Oxygen Delivery Method Room Air Weight: 315 lb 0.014 oz Body Mass Index (BMI) 39.4 Intake and Output for Last 24 Hours 07/22/20 07/23/20 07/24/20 23:59 23:59 23:59 Intake Total 1156.00 / 1156.00 150 / 150 500 / 500 Balance 1156.00 / 1156.00 150 / 150 500 / 500 General: Alert, Oriented x3 Lungs: Normal air movement Cardiovascular: Regular rate, Regular Rhythm Abdomen: Soft, Non-Distended, Tender - Mild left-sided tenderness Microbiology Past 72 Hours 07/23/20 13:50 Urine, Random Streptococcus pneumoniae Antigen (M - Final 07/23/20 13:50 Urine, Clean Catch Legionella Antigen - Final 07/19/20 16:20 Blood Culture (Wb) - Anticubital Right Blood Culture - Preliminary No growth in 48 hours. 07/19/20 16:25 Blood Culture (Wb) - Left Hand Blood Culture - Preliminary No growth in 48 hours. 07/19/20 17:30 Urine, Clean Catch Urine Culture - Final Culture exhibits no growth. Laboratory Results 07/24/20 06:13: WBC 7.1, RBC 3.82 L, Hgb 10.9 L, Hct 33.0 L, MCV 86.4, MCH 28.5, MCHC 33.0, RDW Std Deviation 41.8, RDW Coeff of Foster 13.2, Plt Count 206, MPV 10.5, Immature Gran % (Auto) 1.000 H, Neut % (Auto) 74.2 H, Lymph % (Auto) 13.7 L, [place] % (Auto) 10.6 H, Eos % (Auto) 0.4, Baso % (Auto) 0.1, Absolute Neuts (auto) 5.2, Absolute Lymphs (auto) 0.97, Nucleated RBC % 0 07/24/20 06:13: Sodium 138, Potassium 3.3 L, Chloride 104, Carbon Dioxide 30.0, Anion Gap 4 L, BUN 13, Creatinine 0.69 L, Estim Creat Clear Calc 163.29, Est GFR (MDRD) Af Amer 160, Est GFR (MDRD) Non-Af 132, BUN/Creatinine Ratio 18.9, Glucose 100, Calcium 9.0, Total Bilirubin 0.40, AST 25, ALT 30, Alkaline Phosphatase 78, Total Protein 6.0 L, Albumin 2.3 L, Globulin 3.7, Albumin/Globulin Ratio 0.6 L, Lipase 239 Current Medications Acetaminophen (Tylenol) 650 mg PO Q6H PRN PRN PRN Reason: Pain Score 1-1010 Last Admin: 07/23/20 16:00 Dose: 650 mg Documented by: Buspirone HCl (Buspar) 15 mg PO BID [facility] Last Admin: 07/23/20 21:54 Dose: 15 mg Documented by: Citalopram Hydrobromide (Celexa) 20 mg PO DAILY [facility] Last Admin: 07/23/20 09:52 Dose: 20 mg Documented by: Docusate Sodium (Colace) 100 mg PO BID PRN PRN PRN Reason: Constipation Last Admin: 07/22/20 21:09 Dose: 100 mg Documented by: Enoxaparin Sodium (Lovenox) 140 mg SC Q12 [facility] Last Admin: 07/23/20 21:54 Dose: 140 mg Documented by: Hydralazine HCl (Apresoline Iv) 10 mg IV Q4H PRN PRN PRN Reason: SBP > 160 Hydromorphone HCl (Dilaudid Inj) 1 mg IV Q4H PRN PRN PRN Reason: Pain Score 6-10/10 Sodium Chloride () 250 mls @ 15 mls/hr IV .[id number] PRN PRN Reason: Saline Flush Last Infusion: 07/22/20 09:34 Dose: Infused Documented by: Sodium Chloride () 250 mls @ 15 mls/hr IV .[id number] PRN PRN Reason: Additional IVPB Infusion Levofloxacin (Levaquin Iv) 750 mg in 150 mls @ 100 mls/hr IV Q24 [facility] Stop: 07/26/20 11:01 Last Infusion: 07/23/20 13:51 Dose: Infused Documented by: Ketorolac Tromethamine (Toradol (Bkc)) 15 mg IV Q8 [facility] Stop: 07/24/20 22:01 Last Admin: 07/24/20 05:22 Dose: 15 mg Documented by: Lactobacillus Acidophilus (Acidophilus) 1 tablet PO BID [facility] Last Admin: 07/23/20 21:54 Dose: 1 tablet Documented by: Lisinopril (Zestril) 20 mg PO BID [facility] Last Admin: 07/23/20 21:54 Dose: 20 mg Documented by: Loratadine (Claritin) 10 mg PO DAILY [facility] Last Admin: 07/23/20 09:52 Dose: 10 mg Documented by: Ondansetron HCl (Zofran) 4 mg IV Q8H PRN PRN PRN Reason: NAUSEA/VOMITING Last Admin: 07/19/20 02:26 Dose: 4 mg Documented by: Oxycodone HCl (Oxyir) 10 mg PO Q4H PRN PRN PRN Reason: Pain Score 6-10/10 Last Admin: 07/23/20 21:59 Dose: 10 mg Documented by: Pantoprazole Sodium (Protonix) 40 mg PO DAILY [facility] Last Admin: 07/23/20 09:52 Dose: 40 mg Documented by: Sodium Chloride () 10 - 40 ml IV UD PRN PRN Reason: SALINE FLUSH Last Admin: 07/24/20 05:22 Dose: 20 ml Documented by: Trazodone HCl (Desyrel) 50 - 100 mg PO QHS PRN PRN Reason: INSOMNIA Medical Necessity - Tobacco Use Smoking Status: Former smoker Tobacco Use: Cigarettes Assessment/Plan All Active Problems Pancreatitis (Acute) Left renal mass (Acute) Vertebral artery dissection (Resolved) Headache (Acute) 44-year-old male with acute pancreatitis 1. The patient had repeat CT yesterday which showed increasing inflammation around the left side of the abdomen. Also showed left pleural effusion. Patient was restarted antibiotics. He was put on a low-fat diet yesterday and tolerated this with no nausea vomiting or increase in pain. From my standpoint he can be discharged home on a low-fat diet and follow-up with me to discuss possibility and pros and cons of laparoscopic cholecystectomy in the future. Gary Wan MD Pager: [facility] [address] [place] [address], [address] [place] [address] Office:
--- NOTE | 2020-07-24 07:38 | PCM.DC.SUM ---
Discharge Date and Diagnosis - Problem List Patient Problems: Active and Suspected Problems Pancreatitis (Acute) Left renal mass (Acute) Date of Admission: 07/18/20 Date of Discharge: 07/24/20 - Primary Discharge Diagnosis Acute Problems: Active Problems 1. Acute pancreatitis w/ abdominal pain, N/V 2. LLL Pneumonia, unclear type, CAP 3. Incidental small solid cortical nodule left kidney, Unclear etiology 4. Unclear hypercoagulable state 5. Hypertension 6. Hyperlipidemia 7. Anxiety and depression 8. Allergic rhinitis 9. Obesity - Secondary Discharge Diagnosis Chronic Problems: Chronic Problems HTN (hypertension) (Chronic) Dyslipidemia (Chronic) Hypercoagulable state (Chronic) Hospital Course and Treatment Dr. Wan General surgery Dr. Bell Urology Operations: None Procedures: EKG Summary of Care Provided: The patient is a 44 y/o M w/ PMHx: HTN, HLD, Unclear Hypercoagulable state non-compliant with anticoagulation on therapeutic lovenox, Hx Vertebral dissection, Depression, Known Hypertriglyceridemia, Allergic Rhinitis who presented to the [facility] ED on 07/18/20 with history of abdominal discomfort radiating towards back with associated nausea and emesis worsening over 48 hours prompting ED evaluation. Admission abdominal ultrasound with thick-walled gallbladder multiple polyps with no obvious shadowing of stones, follow-up CT abdomen pelvis with findings consistent with acute pancreatitis localized to the body and tail of the pancreas with a small amount of free fluid in the left anterior pararenal space as well as incidental finding of a small solid cortical nodule of the left kidney of unclear etiology, initial ED lipase 3813. Patient admitted to medical surgical floor, maintained on IV fluids, initially n.p.o. status with transition to eventual full low fat diet once improved per surgery discretion however ongoing various issues during admission. CBC during admission transiently increased up to 15.3 with left shift however normalized, blood culture x2 without growth, urine culture without growth, chest x-ray with limited inspiration with left basilar atelectasis, initial CT abdomen pelvis not marked appearing however planned 07/23/[address] abdomen and pelvis per surgery discretion. Patient afebrile since 07/19/2020 with only elevated temperature on 07/20/2020 99.9 otherwise normalized. Patient had been on antibiotic therapy with zosyn but this was discontinued on 07/22/2020 after am dose. Repeat with contrast CT A/P w/ new left pleural effusion and left lower lobe consolidation, progressive peripancreatic inflammatory changes, small amount of pelvic fluid, small amount of fluid seen in the paracolic gutters bilaterally, persistent 2.5 cm x 1.7 cm solid nodule superior lateral aspect left kidney. Patient fever and L sided pleuritic pain likely secondary to LLL PNA. Patient started on levaquin to complete treatment for pneumonia, requested sputum cx but no marked cough, negative antigens. Did discuss COVID testing however declined. Discussed that given WBC elevation w/ L shift resolved with abx as well as fever resolution with abx and focal LLL infiltrate low suspicion for COVID. He did admit to shortness of breath x 1-2 days over the weekend but noted improvement and greater ease of breathing/moving once restarted abx therapy. Admission lipase 3813-->1966-->normalized 07/21/20 320-->07/24/20 lipase 239, FLP panel not market with triglycerides 141, total cholesterol 229, LDL 160, VLDL 28, HDL 41, denied alcohol intake as etiology, continued on PPI, oral pain regimen with minimal usage and meal tolerance. Given CT A/P renal findings requested Dr. Bell consultation with discussions regarding possible benign versus malignant renal mass with planned follow-up outpatient following resolution of acute pancreatitis and pneumonia. Patient also with history of unclear specific type hypercoaguable state and noted noncompliance with coumadin and prior decline of newer NOAC secondary to bleeding concerns. Durign admission patient maintained on therapeutic lovenox with eventual transition and agreement with doing so to eliquis with verified cost $10/month. Patient clinically improved, tolerated food, pain controlled, therefore discharged to home in stable condition with follow-up with his PCP, Urology and if necessary information for Dr. Wan in case any recurrent pancreatitis issues. DAY OF DISCHARGE PROGRESS NOTE: Subjective: Patient without acute event overnight per self and nursing report. Patient tolerating diet including breakfast and notes moving with greater ease, no shortness of breath and less in pain to the left flank and abdomen. Patient denies fever, chills, nausea, emesis, worsened abdominal pain, worsened chest pain or recurrent dyspnea. Patient agreeable to discharge to home. Patient will be discharged with follow-up with primary care physician within 3-5 days in addition to follow-up with urology within 1 to 2 weeks following improvement for reevaluation and outpatient continued follow-up for incidental mass. Objective: T 98.6, heart rate 80, BP 162/96, respiratory rate 16, 95% on room air. Physical Examination: General: awake, alert, oriented x 3 and cooperative, seated upright in the medical surgical bedside chair, no acute distress, recently finished breakfast without issue. Skin: normal color, turgor, no icterus, cyanosis. HEENT: AT/NC, EOMI, PERRLA, MMM. Lungs: CTA bilaterally, moderate effort, mild decrease BL bases, no rales, ronchi or wheezing; Heart: Regular rate and rhythm; no gallop, rub audible. Abdomen: soft, obese, lessened epigastric and L sided abdominal discomfort, lessened L CVA discomfort, ND, normalizing BS. Extremities: no cyanosis, clubbing, or edema. Neurological: patient awake, alert, oriented x 3; cognitive function appears intact upon questioning,; pupils equally reactive to light and accomodation; cranial nerves II-XII grossly normal, moving all 4 extremities, strength appropriate. Psychiatric: affect appears mildly fatigued otherwise normal, no acute evidence of depressive or anxiety feelings. Assessment and Plan: Please see hospital summary above. Patient Problems: Active and Suspected Problems Pancreatitis (Acute) Left renal mass (Acute) - Physical Exam Vitals/I&O's: Vital Signs Temp Pulse Resp BP Pulse Ox 98.6 F 80 18 162/96 H 95 07/24/20 02:00 07/24/20 02:00 07/24/20 02:00 07/24/20 02:00 07/24/20 02:00 Oxygen Flow Rate (L/min) 2 Oxygen Delivery Method Room Air Weight: 315 lb 0.014 oz Body Mass Index (BMI) 39.4 Intake and Output for Last 24 Hours 07/22/20 07/23/20 07/24/20 23:59 23:59 23:59 Intake Total 1156.00 / 1156.00 150 / 150 500 / 500 Balance 1156.00 / 1156.00 150 / 150 500 / 500 Microbiology Past 72 Hours 07/23/20 13:50 Urine, Random Streptococcus pneumoniae Antigen (M - Final 07/23/20 13:50 Urine, Clean Catch Legionella Antigen - Final 07/19/20 16:20 Blood Culture (Wb) - Anticubital Right Blood Culture - Preliminary No growth in 48 hours. 07/19/20 16:25 Blood Culture (Wb) - Left Hand Blood Culture - Preliminary No growth in 48 hours. 07/19/20 17:30 Urine, Clean Catch Urine Culture - Final Culture exhibits no growth. Laboratory Results 07/24/20 06:13: WBC 7.1, RBC 3.82 L, Hgb 10.9 L, Hct 33.0 L, MCV 86.4, MCH 28.5, MCHC 33.0, RDW Std Deviation 41.8, RDW Coeff of Foster 13.2, Plt Count 206, MPV 10.5, Immature Gran % (Auto) 1.000 H, Neut % (Auto) 74.2 H, Lymph % (Auto) 13.7 L, [place] % (Auto) 10.6 H, Eos % (Auto) 0.4, Baso % (Auto) 0.1, Absolute Neuts (auto) 5.2, Absolute Lymphs (auto) 0.97, Nucleated RBC % 0 07/24/20 06:13: Sodium 138, Potassium 3.3 L, Chloride 104, Carbon Dioxide 30.0, Anion Gap 4 L, BUN 13, Creatinine 0.69 L, Estim Creat Clear Calc 163.29, Est GFR (MDRD) Af Amer 160, Est GFR (MDRD) Non-Af 132, BUN/Creatinine Ratio 18.9, Glucose 100, Calcium 9.0, Total Bilirubin 0.40, AST 25, ALT 30, Alkaline Phosphatase 78, Total Protein 6.0 L, Albumin 2.3 L, Globulin 3.7, Albumin/Globulin Ratio 0.6 L, Lipase 239 Current Medications Acetaminophen (Tylenol) 650 mg PO Q6H PRN PRN PRN Reason: Pain Score 1-10/10 Last Admin: 07/23/20 16:00 Dose: 650 mg Documented by: Buspirone HCl (Buspar) 15 mg PO BID [facility] Last Admin: 07/23/20 21:54 Dose: 15 mg Documented by: Citalopram Hydrobromide (Celexa) 20 mg PO DAILY [facility] Last Admin: 07/23/20 09:52 Dose: 20 mg Documented by: Docusate Sodium (Colace) 100 mg PO BID PRN PRN PRN Reason: Constipation Last Admin: 07/22/20 21:09 Dose: 100 mg Documented by: Enoxaparin Sodium (Lovenox) 140 mg SC Q12 [facility] Last Admin: 07/23/20 21:54 Dose: 140 mg Documented by: Hydralazine HCl (Apresoline Iv) 10 mg IV Q4H PRN PRN PRN Reason: SBP > 160 Hydromorphone HCl (Dilaudid Inj) 1 mg IV Q4H PRN PRN PRN Reason: Pain Score 6-10/10 Sodium Chloride () 250 mls @ 15 mls/hr IV .[id number] PRN PRN Reason: Saline Flush Last Infusion: 07/22/20 09:34 Dose: Infused Documented by: Sodium Chloride () 250 mls @ 15 mls/hr IV .[id number] PRN PRN Reason: Additional IVPB Infusion Levofloxacin (Levaquin Iv) 750 mg in 150 mls @ 100 mls/hr IV Q24 [facility] Stop: 07/26/20 11:01 Last Infusion: 07/23/20 13:51 Dose: Infused Documented by: Ketorolac Tromethamine (Toradol (Bkc)) 15 mg IV Q8 [facility] Stop: 07/24/20 22:01 Last Admin: 07/24/20 05:22 Dose: 15 mg Documented by: Lactobacillus Acidophilus (Acidophilus) 1 tablet PO BID [facility] Last Admin: 07/23/20 21:54 Dose: 1 tablet Documented by: Lisinopril (Zestril) 20 mg PO BID [facility] Last Admin: 07/23/20 21:54 Dose: 20 mg Documented by: Loratadine (Claritin) 10 mg PO DAILY [facility] Last Admin: 07/23/20 09:52 Dose: 10 mg Documented by: Ondansetron HCl (Zofran) 4 mg IV Q8H PRN PRN PRN Reason: NAUSEA/VOMITING Last Admin: 07/19/20 02:26 Dose: 4 mg Documented by: Oxycodone HCl (Oxyir) 10 mg PO Q4H PRN PRN PRN Reason: Pain Score 6-10/10 Last Admin: 07/23/20 21:59 Dose: 10 mg Documented by: Pantoprazole Sodium (Protonix) 40 mg PO DAILY [facility] Last Admin: 07/23/20 09:52 Dose: 40 mg Documented by: Sodium Chloride () 10 - 40 ml IV UD PRN PRN Reason: SALINE FLUSH Last Admin: 07/24/20 05:22 Dose: 20 ml Documented by: Trazodone HCl (Desyrel) 50 - 100 mg PO QHS PRN PRN Reason: INSOMNIA Discharge Activity: Return to Normal Activity, May not drive while taking narcotic pain medications. May resume sexual activity in: No Restrictions Weight Bearing Status: Weight bearing as tolerated Call your doctor if you observe: Fever of 101 or Higher, Inability to urinate, Inability to have a bowel movement, Using more than one pad per hour, Shortness of breath, Dizziness, Fainting spells, Chest pain, Uncontrolled pain Home Medications: Medications to take at Discharge Buspirone HCl 15 mg PO BID 07/18/20 Citalopram [Celexa] 20 mg PO DAILY 07/18/20 Hydrochlorothiazide [Hctz] 25 mg PO DAILY 07/18/20 Lisinopril [Zestril] 20 mg PO BID 07/18/20 Loratadine [Claritin] 10 mg PO DAILY 07/18/20 Apixaban [Eliquis] 5 mg PO UD #70 tab 07/24/20 Lactobacillus Acidophilus [Acidophilus] 1 tab PO BID #20 tab 07/24/20 Oxycodone [Oxyir] 10 mg PO Q4H PRN PRN 5 Days #40 tab 07/24/20 Pantoprazole Sodium [Protonix] 40 mg PO DAILY #30 tab 07/24/20 levoFLOXacin tablet [Levaquin tablet] 750 mg PO DAILY #3 tab 07/24/20 traZODone [Desyrel] 50 - 100 mg PO QHS PRN #60 tab 07/24/20 Following Prescriptions Were Given to Patient: Lactobacillus Acidophilus [Acidophilus] 1 tab PO BID #20 tab Transmission Status: Received by [facility] traZODone [Desyrel] 50 - 100 mg PO QHS PRN #60 tab PRN Reason: Insomnia Transmission Status: Received by [facility] Apixaban [Eliquis] 5 mg PO UD #70 tab Prescription Printed levoFLOXacin tablet [Levaquin tablet] 750 mg PO DAILY #3 tab Transmission Status: Received by [facility] Oxycodone [Oxyir] 10 mg PO Q4H PRN PRN 5 Days #40 tab PRN Reason: Pain Score 6-10/10 Transmission Status: Received by [facility] Pantoprazole Sodium [Protonix] 40 mg PO DAILY #30 tab Transmission Status: Received by [facility] Primary Care Physician: Karen Hernandez DO [Primary Care Provider] - Please follow up with your Primary Care Physician in: Follow-up within 3-5 days to review admission. Please Follow Up With: Toni Bell MD When: Follow-up in 1-[address] Bell discretion. Please Follow Up With: Gary Wan MD When: May contact office with any concerns/questions regarding acute pancreatitis Please Follow Up With: Follow-up as needed, no urgent follow-up needs. Patient Instructions: What Is Pneumonia?, Using an Incentive Spirometer, Understanding Pancreatitis, Preventing Pneumonia, Treating Pneumonia, Acute Pancreatitis Disposition: Home Minutes spent on discharge:: 35 Patient Condition:: Fair Medical Necessity - Tobacco Use Smoking Status: Former smoker Tobacco Use: Cigarettes Meaningful Use Info Meaningful Use Diagnoses (Choose all that apply): None applicable Inpatient E&M: 42676 Disch Hosp
[2020-07-24 08:00] VITALS: BP 152/94; PULSE 61; RESP 18; TEMP 36.8; O2SAT 97
[2020-07-24] MEDS: Polyethylene Glycol 3350 17 GM PACKET PO (08:30)
[2020-07-24] MEDS: busPIRone 15 MG TABLET PO (08:31)
[2020-07-24] MEDS: Pantoprazole Sodium 40 MG Tablet PO (08:31)
[2020-07-24] MEDS: Citalopram 20 MG Tablet PO (08:31)
[2020-07-24] MEDS: Loratadine 10 MG Tablet PO (08:31)
[2020-07-24] MEDS: Lisinopril 20 MG Tablet PO (08:31)
[2020-07-24] MEDS: levoFLOXacin 750 MG Tablet PO (08:31)
[2020-07-24] MEDS: APIXABAN 5 MG TABLET 10 MG PO (08:34)
--- NOTE | 2020-07-24 09:04 | CASEMGMT ---
RN CM Note: Intro role of CM to patient who is being discharged to home today. No concerns or needs identified. Pt will be discharged on Eliquis, and savings card given to him and explained. Lisette KATEN RN ACM
== END 2020-07-24 10:08 | disposition home or self-care (01) | DRG 438 ==
LOC: ED 16:24 → MS3 17:45
PROVIDERS: Internal Medicine; Physician Assistant; Surgery; Admitting Provider Internal Medicine; Emergency Provider Emergency Medicine; PCP Internal Medicine; Visit Provider Family Medicine
DX: K85.90 Acute pancreatitis without necrosis or infection, unspecified (principal); J18.9 Pneumonia, unspecified organism; D68.59 Other primary thrombophilia; J98.11 Atelectasis; J90 Pleural effusion, not elsewhere classified; N28.89 Other specified disorders of kidney and ureter; F41.9 Anxiety disorder, unspecified; F32.9 Major depressive disorder, single episode, unspecified; I10 Essential (primary) hypertension; E78.5 Hyperlipidemia, unspecified; E66.9 Obesity, unspecified; Z68.39 Body mass index [BMI] 39.0-39.9, adult; Z91.14 Patient's other noncompliance with medication regimen; E78.1 Pure hyperglyceridemia; J30.9 Allergic rhinitis, unspecified; E83.42 Hypomagnesemia; Z87.891 Personal history of nicotine dependence; Z86.79 Personal history of other diseases of the circulatory system; Z79.01 Long term (current) use of anticoagulants; Z79.899 Other long term (current) drug therapy
CPT/HCPCS: 36415; 71045; 74177; 76705; 80048; 80053; 80061; 80076; 81001; 83605; 83690; 83735; 84100; 84478; 85025; 85610; 87040; 87086; 87449; 93005; 97802; 99284; J7030; J7040; J7050; J7120; Q9967; A4216; J2405

== ENCOUNTER → 2020-08-06 10:20 | Outpatient (CLI) | payer OTHER, SELFPAY ==
[2020-07-18 17:07] VITALS: BMI 39.4
--- NOTE | 2020-08-06 10:24 | NM_ITS ---
CLINICAL: 44-year-old male with reported history of right upper quadrant abdominal pain. RADIONUCLIDE HEPATOBILIARY SCINTIGRAPHY COMPARISON: CT of the abdomen-pelvis report 07/23/2020, abdominal ultrasound report 07/18/2020 FINDINGS: Following the intravenous administration of 5.4 mCi of 99m Tc Mebrofenin, hepatobiliary images reveal: 1. Relatively prompt and homogeneous radiopharmaceutical concentration is noted by a normal sized liver. No parenchymal defects are identified. 2. Gallbladder activity is identified at 30 minutes post radiopharmaceutical administration. 3. Small intestinal tract is observed by 60 minutes following tracer injection. 4. Washout of the radiopharmaceutical by the hepatic parenchyma appears qualitatively normal. Cholecystokinin (0.02 ug/kg) was administered intravenously over a 30-minute period. The post CCK gallbladder ejection fraction calculated at 20 minutes following Cholecystokinin administration was noted to be 88.0 % (normal greater than 35%). During 30 minutes of post CCK imaging, there is no scintigraphic evidence of reflux of the radiotracer into the common hepatic duct or refilling of the gallbladder. NM/Hepatobilliary Img w/Pharm Int IMPRESSION: 1. NORMAL 99m Tc Mebrofenin hepatobiliary imaging examination with Cholecystokinin. A. A gallbladder ejection fraction calculated to be greater than 35% following the administration of Cholecystokinin makes the probability of functional hepatobiliary disease (gallbladder and/or sphincter of Oddi dyskinesia) and/or organic hepatobiliary disease (chronic acalculous cholecystitis and/or cystic duct syndrome) to be low. (Luis Angel Parra et al, Journal of Nuclear Medicine 32:1695, 1990). Electronically Signed: Skyler Johnson DO at 22:30 EDT Tel , Service support ,
== END ==
PROVIDERS: PCP Internal Medicine; Referring Provider Internal Medicine; Visit Provider Internal Medicine
DX: R10.13 Epigastric pain (principal)
CPT/HCPCS: 78227; A9537; J2805

== ENCOUNTER 2021-11-07 18:44 | Outpatient (CLI) | payer OTHER, SELFPAY ==
--- NOTE | 2021-11-07 18:49 | CT_ITS ---
EXAM: CT ANGIOGRAPHY CHEST WITHOUT AND WITH INTRAVENOUS CONTRAST CLINICAL INDICATION: PE SOB S/P COVID TECHNIQUE: Helically acquired angiography images were obtained of the chest without and with intravenous contrast. This CT exam was performed using one or more of the following dose reduction techniques: automated exposure control, adjustment of the mA and/or kV according to patient size, and/or use of iterative reconstruction technique. This report was created using [employer] report generation technology. MIP reconstructed images were created and reviewed. CONTRAST: IV 100mL [id number] COMPARISON: CTAP 07/23/2020 FINDINGS: PULMONARY ARTERIES: No demonstrated pulmonary embolism or arterial dissection. AORTA: There are thoracic aortic calcifications consistent for atherosclerotic disease. There is no dissection or hematoma noted in the thoracic aorta. GREAT VESSELS OF AORTIC ARCH: Unremarkable. Normal in caliber. No evidence of dissection. LUNGS AND PLEURAL SPACES: Unremarkable. No mass. No consolidation or edema. No pleural effusion or thickening. No pneumothorax. HEART: Unremarkable. Heart size is normal. No pericardial effusion. No signs of right heart strain, ratio of right ventricle to left ventricle measures less than 1. MEDIASTINUM: Unremarkable. No mediastinal or hilar adenopathy. Esophagus is unremarkable. No hiatal hernia. THYROID: Unremarkable. No thyroid lesions. BONES/JOINTS: There are degenerative findings of the thoracic spine. No suspicious lytic or blastic abnormality. PANCREAS: 35 mm poorly defined mass in the tail of the pancreas. This is [address] of the abdomen and pelvis utilizing pancreas protocol is recommended to exclude underlying neoplasm. KIDNEYS AND URETERS: Stable hypodensity of the superior right kidney. Post ablation changes of the left kidney. CT/CTA Chest W/WO Contrast IMPRESSION: 1. 35 mm poorly defined mass in the tail of the pancreas. This is [address] of the abdomen and pelvis utilizing pancreas protocol is recommended to exclude underlying neoplasm. 2. No demonstrated pulmonary embolism or arterial dissection. Electronically Signed: Mckinley Zazueta MD at 19:23 EST , Service support ,
[2021-11-07 19:01] LABS: CREATININE FINGERSTICK < 0.6 mg/dL (0.70-1.30); EGFR FINGERSTICK > 60.0000 mL/min (>60)
== END 2021-11-07 23:59 | disposition short-term general hospital (02) ==
LOC: CT 18:45
PROVIDERS: PCP Internal Medicine; Visit Provider Internal Medicine
DX: R06.02 Shortness of breath (principal)
CPT/HCPCS: 71275; Q9967; A4216

== ENCOUNTER 2021-12-03 08:02 | Outpatient (CLI) | payer OTHER, SELFPAY ==
--- NOTE | 2021-12-03 08:07 | ECHOCS_ITS ---
Reason For Study: DYSPNEA Procedure This was a 2D Doppler, Color Flow transthoracic echocardiogram. Myocardial strain analysis was performed in this exam to aid in the assessment of cardiac function. The study was technically difficult. Contrast injection was performed. Exam performed in department. Left Ventricle Normal LV size. Left ventricular systolic function is normal. The estimated ejection fraction is 53 %. No regional wall motion abnormalities noted. Right Ventricle Normal RV size. Normal systolic function. Atria Normal left atrium. Normal right atrium. Mitral Valve Normal mitral valve. Tricuspid Valve Normal tricuspid valve. Mild tricuspid valve insufficiency. Aortic Valve Normal aortic valve. Trisinus/trileaflet aortic valve. Pulmonic Valve Normal pulmonic valve. Great Vessels Normal aortic root. The pulmonary artery is normal size. Normal inferior vena cava. Pericardium/Pleural No pericardial effusion. Medication 22 gauge I.V. with prn adaptor inserted into right arm. Diluted definity 5.0ml given slow IV push to enhance endocardial definition. MMode/2D Measurements & Calculations LVIDd: 4.4 cm IVSd: 0.86 cm Ao root diam: 4.0 cm LVIDs: 3.5 cm LVPWd: 1.0 cm RVDd: 4.4 cm FS: 21.5 % LAV(MOD-bp): 66.8 ml LVAd ap4: 36.4 cm2 LVAd ap2: 45.4 cm2 LAV(MOD-bp) Indexed: 25.4 ml/m2 LVLd ap4: 9.2 cm LVLd ap2: 9.8 cm LAV(MOD-sp2): 58.2 ml EDV(MOD-sp4): 117.9 ml EDV(MOD-sp2): 169.1 ml LAV(MOD-sp4): 61.6 ml EDV(sp4-el): 121.7 ml EDV(sp2-el): 177.9 ml LVAs ap4: 26.8 cm2 LVAs ap2: 32.4 cm2 LVLs ap4: 8.3 cm LVLs ap2: 9.2 cm ESV(MOD-sp4): 68.6 ml ESV(MOD-sp2): 93.0 ml ESV(sp4-el): 73.3 ml ESV(sp2-el): 96.7 ml EF(MOD-sp4): 41.8 % EF(MOD-sp2): 45.0 % EF(sp4-el): 39.7 % SV(MOD-sp4): 49.3 ml SV(MOD-sp2): 76.1 ml SV(sp4-el): 48.4 ml LA A4 area: 22.6 cm2 LA dimension(2D): 3.7 cm RA A4 area: 17.3 cm2 Doppler Measurements & Calculations MV E max tom: 62.9 cm/sec Lat Peak E' Tom: 11.1 cm/sec Med Peak E' Tom: 6.0 cm/sec MV A max tom: 42.1 cm/sec E/E' lat: 5.7 E/E' med: 10.5 MV E/A: 1.5 Ao V2 max: 104.5 cm/sec LV V1 max: 91.7 cm/sec PA V2 max: 81.7 cm/sec Ao max P.4 mmHg LV V1 max P.4 mmHg TR max tom: 221.3 cm/sec TR max P.6 mmHg ECHO/Echo Complete W/ Contrast Interpretation Summary Normal LV size. Left ventricular systolic function is normal. The estimated ejection fraction is 53 %. Contrast injection was performed. The global longitudinal strain is moderately abnormal. The global longitudinal strain = -14.3% (abnormal). Ordering Physician: Lonnie Brito Referring Physician: LUIS BETANCUR Performed By: Silvia Gallardo, NORMAN, RVT
== END 2021-12-03 23:59 | disposition short-term general hospital (02) ==
LOC: CVS 08:05
PROVIDERS: PCP Internal Medicine; Referring Provider Internal Medicine Cardiovascular Disease; Visit Provider Internal Medicine Cardiovascular Disease
DX: R06.00 Dyspnea, unspecified (principal)
CPT/HCPCS: 93306; Q9957; A4216; C8929